=== PATIENT | male | born 1980 | race Caucasian/White ===

== ENCOUNTER 2019-05-01 11:45 | Emergency (ER) | payer BC ==
[~2019-05-01] VITALS: Ht 190.5 cm; Wt 117.0 kg
[~2019-05-01 11:45] MED LIST: HUMIRA40 MG/0.1 SUB-Q; INDOMETHACIN50 MG PO
== END 2019-05-01 14:34 | disposition home or self-care (01) ==
LOC: ED 11:45
DX: R10.13 Epigastric pain (principal); I10 Essential (primary) hypertension
CPT/HCPCS: 76705; 80053; 83690; 85025; 96360; 96361; 99284-25; J7030

== ENCOUNTER 2019-05-01 13:00 | Inpatient (IN) | payer BC ==
[~2019-05-01] VITALS: Ht 190.5 cm; Wt 117.0 kg
--- NOTE | ~2019-05-01 | DS ---
[facility] [address] [facility] [place], [place] [address] Draft ADMISSION DATE: 05/01/2019 DISCHARGE DATE: 05/08/2019 REASON FOR ADMISSION: This 39-year-old white man is accompanied by his , who is an employee of [employer] (lactational specialist). 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 Days leading up to admission had increasing episodes of rather severe epigastric and right subcostal pain. The episodes have lasted several hours, then resolved. Most recently, he had unrelenting pain in the morning of admission and presented to emergency room where he was evaluated by Dr. Michel, emergency room physician. He recognized to have pain at approximately 4 a.m. He was seen about noon. He has noted at the time of his presentation to have a little nausea and only episodic pain, he did have vomiting. Ultrasound confirmed at least one gallstone 2.8 cm in size as well as fatty infiltration of liver. Normal white count was noted. Alkaline phosphatase normal at 63, AST elevated at 140, bilirubin 1.3, lipase 33. The patient was discharged from the emergency room, but called my office given his symptoms, which sounded as though he had active acute cholecystitis with gallstones and therefore was directly admitted for further evaluation and care. Of special note, the patient does have underlying Crohn disease, terminal ileitis for which he has been on Humira since 2011. PHYSICAL EXAMINATION: GENERAL: At the time of admission showed an obese white man, who looked to be slightly uncomfortable. VITAL SIGNS: Temperature 97.8, pulse 76, blood pressure 144/86. NECK: Normal. CHEST: Clear. HEART: Regular without murmur. ABDOMEN: Obese, but soft. There is tenderness in the right subcostal area and epigastrium, but no peritonitis proper. He had no ascites. LABORATORY STUDIES: Showed a white count of 7.3, hematocrit 45.0, bilirubin 1.3, AST 140, ALT 136, alkaline phosphatase normal at 63, amylase and lipase were normal at 90 and 33. Ultrasound was reviewed confirming what appeared to be a single large gallstone. HOSPITAL COURSE: The patient was directly admitted to the hospital and given intravenous antibiotics. In light of his relative immunosuppression related to Humira use for inflammatory bowel disease, he was considered increased risk of problems and hospitalization was deemed PATIENT NAME: MERISSA ALICEA DISCHARGE SUMMARY DATE OF : [birth year] REPORT #: [id number] PHYSICIAN: HALIE CLINTON MD PCP: KATHRYN LOVE PAC REPORT IS CONFIDENTIAL AND NOT TO BE RELEASED WITHOUT AUTHORIZATION [facility] [address], [place] [address] Draft quite appropriate. It was notable that a CT scan performed on June 02, 2011 had confirmed a gallstone at that time. Upon close questioning, the patient has had episodes of epigastric and right subcostal pain occasionally, attributed to his Crohn disease I believe. He was recommended to consider undergoing laparoscopic cholecystectomy for acute calculous cholecystitis. On May 02, 2018, he underwent laparoscopic cholecystectomy with cholangiogram as well as extensive lysis of adhesions. He was found on intraoperative cholangiogram to have a common bile duct stone. On that basis, a laparoscopic common duct exploration was undertaken. This included an over the wire dilation of the ampulla with an ERCP, biliary catheter, flexible choledochoscopy with stone basket extraction and removal of common duct stone. A completion cholangiogram showed no evidence of retained stone or bile leak. A drain was placed in the subhepatic space. He had a fair amount of postoperative pain and considerable amount of anxiety. Ativan and wide variety of pain medications were employed to optimize his comfort. The following day, the drain was placed, showed a bile leak. The amount of biliary leakage was not much, but it was on the staple. The patient had variable amounts of abdominal pain from time to time, sometimes obscured by his underlying anxiety problems. Liver enzymes postoperatively appeared to be good. No evidence of elevated amylase. Phosphate and potassium were low, repleted with K-Phos. He had persistent drainage from his Memo drain, which was not expected. It was recognized that he had very severely inflamed gallbladder far more than clinically would have been expected and 2 Endoloops had been placed on the cystic duct as it was rather large in relation to typical cystic duct site. It was deemed likely that he would have resolution of the bile leak by that point or at least marked diminishment of the output. On that basis, he underwent an MRCP to assess if there was residual stone. There was no evidence of residual stone in the common bile duct or hepatic duct, but there was a leakage in the region of mid common bile duct. Consideration for options of management was undertaken including continued observation, ERCP with stent or laparoscopic and/or open evaluation of bile duct leak. Suspicion was held high that this may represent a cystic duct leak given the extent of inflammation, need for 2 Endoloop closures, and so on. Mindful of this, he elected to return to the operating room on May 05, 2019, underwent laparoscopy for evaluation. He was found to have no evidence of generalized bilious fluid within the abdomen and the drain was well positioned in the subhepatic space, which was draining bile in good amounts. He PATIENT NAME: MERISSA ALICEA BRITANY DISCHARGE SUMMARY DATE OF : [birth year] REPORT #: [id number] PHYSICIAN: HALIE CLINTON MD PCP: KATHRYN LOVE PAC REPORT IS CONFIDENTIAL AND NOT TO BE RELEASED WITHOUT AUTHORIZATION [facility] [address], [place] [address] Draft was found in the subhepatic space to have a defect in the area, which was corresponding to the cystic duct. It was a linear defect and rather persistent and healthy-appearing bile, but clearly the source of a bile leak. Dissection was undertaken to better define this area and it was thought likely related to cystic duct necrosis as was suspected. There was 1 free-floating Endoloop suture and another that was at this point ineffectively secure. Further dissection was undertaken, but certainty as to the location of common bile duct and location of the cystic duct could not be certain. On that basis, conversion to open operation with a subcostal incision was undertaken. Meticulous dissection was undertaken ultimately identifying the common bile duct. A cystic duct remnant was more fully dissected free and ultimately triply clipped. A small 2 mm leak was noted in the anterior aspect of the common bile duct, not far from the cystic duct itself and it was uncertain if this was a result of operative dissection or perhaps biliary tree manipulation during the course of previous operation. That defect was repaired with interrupted 4-0 PDS suture and a choledochotomy made in the common bile duct proper. Ductal exploration was undertaken with instrumentation showing no sign of retained stone. A T-tube was placed and T-tube cholangiogram showed no evidence of retained stone, good clearance of the duct, normal biliary anatomy otherwise. As always, a backup drain (7 mm Memo) was placed near the T-tube exit from the common duct in the subhepatic space. Postoperatively, he did have subjective improvement of his symptoms of pain, though remained quite emotional requiring anxiolytics and so on. The T-tube was allowed to drain to gravity and the Memo drain to bulb suction. There was some amount of bile leak in the first 12 to 24 hours, but this appeared to essentially resolve after that. The T-tube was clamped using a Clave device within the T-tube and he was monitored overnight for symptoms. He had no symptoms of nausea, pain, or other problems. The accessory drain seemed not to drain bile or any excessive fluid at that point. As the patient is now ambulating well, tolerating regular diet, and back to oral medication entirely, he was deemed suitable for discharge as he desired. The drain will be allowed to remain in place given uncertainty as to his progress over the next few days. The T-tube is capped off with Clave device. It is anticipated to see him back in the office in 7-10 days, at which point the subhepatic drain will be removed. The T-tube will ultimately be re-evaluated with T-tube cholangiogram and T-tube extracted at week 3-4. The patient is advised that he may resume his usual regimen of Humira for his Crohn disease issue. PATIENT NAME: MERISSA ALICEA DISCHARGE SUMMARY DATE OF : [birth year] REPORT #: [id number] PHYSICIAN: HALIE CLINTON MD PCP: KATHRYN LOVE PAC REPORT IS CONFIDENTIAL AND NOT TO BE RELEASED WITHOUT AUTHORIZATION [facility] [address], [place] [address] Draft MEDICATIONS: Will include: 1. Dilaudid 4 mg 1-2 p.o. q.4 hours p.r.n. pain, #20. 2. Tylenol 1000 mg p.o. q.6 hours, #60, refill 1. 3. Motrin 600 mg p.o. q.i.d. additionally, the patient will take Flagyl 250 p.o. t.i.d. for the next 48 hours. This is primarily on the basis of his prior history of C difficile colitis and his recent rather prolonged antibiotic usage. 4. Pepcid 20 mg p.o. b.i.d., #60. DISCHARGE DIAGNOSES: 1. Acute and chronic calculous cholecystitis with multiple gallstones, small and large, status post laparoscopic cholecystectomy with cholangiogram and laparoscopic common duct exploration including flexible choledochoscopy and extraction of stone from mid common bile duct. 2. Postoperative bile leak requiring reexploration including laparoscopic evaluation and conversion to open operation with findings of cystic duct necrosis and slippage of ligatures and small defect of common bile duct, status post exploration of common duct, repair of cystic duct, T-tube placement, and on-table cholangiogram. 3. Anxiety disorder, not otherwise specified. 4. Obesity. 5. Crohn disease with terminal ileum. MD JOHN Bolden/TOÑO /[id number] cc: Dr. Anand Renee NP Copies: ALEE RENEE NP ~ PATIENT NAME: MERISSA ALICEA DISCHARGE SUMMARY DATE OF : [birth year] REPORT #: [id number] PHYSICIAN: HALIE CLINTON MD PCP: KATHRYN LOVE PAC REPORT IS CONFIDENTIAL AND NOT TO BE RELEASED WITHOUT AUTHORIZATION
--- NOTE | 2019-05-01 16:33 | NUR ---
PT ARRIVED TO ROOM 115. PT ALERT AND ORIENTED. PT ASSESSMENT COMPLETED. PT DENIES NAUSEA AND REPORTS MILD AND TOLERABLE ABDOMINAL DISCOMFORT THAT DOES NOT WORSEN WITH PALPITATION. CALL LIGHT IN REACH. NO NEEDS OR CONCERNS VOICED.
--- NOTE | 2019-05-01 18:11 | NUR ---
PT RESTING IN SEMIFOWLERS POSITION IN BED. PT ALERT AND ORIENTED. CALL LIGHT AND H2O IN REACH. PT REPORTS PAIN TO ABDOMEN OF 3/10 SO PRN IV TORADOL ADMINSITERED PER PT REQEUST. PT PROVIDED GALLBLADDER BOOKLET EDUCATION. NO FURTHER NEEDS OR CONCERNS VOICED.
--- NOTE | 2019-05-02 03:53 | NUR ---
new bag of iv fluids infusing at 85mls/hr, site wnl. no further needs, call light in reach. primary rn tarik notified.
--- NOTE | 2019-05-02 05:56 | NUR ---
up to br, voided dark yellow urine, back to bed, denies c/o pain, medicated with scheduled tylenol 1000mg po. Npo since midnight for am procedure, swabs and call light at bedside, scds off at this time
--- NOTE | 2019-05-02 05:57 | NUR ---
Pt has been NPO since midnight for am procedure. voiding qs dark yellow urine, was medicated x1 per c/o pain plus gets scheduled tylenol 1000mg po. no emesis. ivf infusing, no adverse reaction to iv abx. up with 1psba. call light at bedside
--- NOTE | 2019-05-02 07:15 | NUR ---
PT RESTING IN SEMIFOWLERS POSITION IN BED WITH EYES CLOSED AND RESPIRATIONS EVEN AND UNLABORED ON RA. CALL LIGHT IN REACH. REPORT RECEIVED FROM JUAN LEMUS.
--- NOTE | 2019-05-02 08:05 | NUR ---
CM initial eval. Pt lives in [place] with , Ariane who works at the hospital. 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 Plans on having a lap josef today. Will dc to home when discharged with . She will be off for a few days to assist pt.
--- NOTE | 2019-05-02 08:19 | NUR ---
MED REC COMPLETE
--- NOTE | 2019-05-02 08:49 | NUR ---
PT RESTING SUPINE IN BED. PT ALERT AND ORIENTED. PT ASSESSMENT COMPLETED. PT REPORTS 3/10 PAIN TO ABDOMEN. PT REQUESTED AND RECEIVED PRN IV TORADOL. CALL LIGHT IN REACH. NO FURTHER NEEDS OR CONCERNS VOICED.
--- NOTE | 2019-05-02 11:35 | NUR ---
PT RESTING ON SIDE,PAIN AT THE MOMENT IS NOT AN ISSUE. ASHLYN AT BS. PT IS TO HAVE LAPCHOLE LATER TODAY. MENTIONED THT HE WAS STILL WONDERING IF HE SHOULD GO THROUGH WITH SURGERY SINCE THE PAIN IS NOT MUCH OF AN ISSUE. BEGAN TO DEBRIEF, HELPED HIM WHAT HE COULD EXPECT, PT DECLINED PRAYER AT THIS MOMENT. EXTENDED A BLESSING, AND I WAS LEAVING HIS MOTHER CAME. WILL FOLLOW NEEDED
--- NOTE | 2019-05-02 11:55 | NUR ---
LR WITH STRAIGHT TUBING HUNG FOR USE IN SURGERY. DECKHAND FISHING VESSEL IN TO TRANSFER PT TO OR, REPORT GIVEN. PT LEAVES FLOOR VIA HOSPITAL BED TO OR AT THIS TIME IN CARE OF [employer] VESSEL.
--- NOTE | 2019-05-02 14:06 | NUR ---
PT REMAINS IN OR AT THIS TIME.
--- NOTE | 2019-05-02 15:14 | NUR ---
PT REMAINS OFF OF MED SURG UNIT IN OR AT THIS TIME.
--- NOTE | 2019-05-02 15:16 | NUR ---
05/02/19 1516 Peyton Lal 1508 PATIENT ARRIVES TO PACU SLEEPING. AWAKENS WITH VERBAL STIMULI, THEN BACK TO SLEEP. RESP EVEN AND UNLABORED, WHEN AWAKE, FOLLOWS COMMANDS TO DEEP BREATHE AND COUGH. MASK AT 6 LITERS. 1515 PATIENT AWAKE OFF/ON. ANSWERS QUESTIONS APPROPRIATELY. RESP EVEN AND UNLABORED, MASK OFF. ROOM AIR SATS >95%. REPORTS PAIN 10/16.
--- NOTE | 2019-05-02 17:40 | NUR ---
PT ARRIVED BACK TO ROOM 115 FROM PACU IN CARE OF JUAN HER. REPORT RECEIVED. PT ALERT ADN ORIENTED, VSS. CALL LIGHT AND H2O IN REACH. PT REPORTS INCREASED ABD PAIN TO SURGICAL SITE SO PRN PO DILAUDID ADMINISTERED PER PT REQEUST. PT'S AT BEDSIDE. ICE APPLIED TO ABDOMEN.SHANNA DRAIN AND URINAL EMPTIED. PT DENIES NAUSEA OR SOB. NO FURTHER NEEDS OR CONCERNS VOICED.
--- NOTE | 2019-05-02 18:36 | OR ---
[facility] [address], [place] [address] Signed DATE OF OPERATION: 05/02/2019 SURGEON: Halie Clinton MD PREOPERATIVE DIAGNOSES: 1. Acute calculous cholecystitis. 2. Crohn disease (Humira treatment). POSTOPERATIVE DIAGNOSES: 1. Acute calculous cholecystitis and multiple gallstones. 2. Common bile duct stone. PROCEDURES: 1. Laparoscopic cholecystectomy with cholangiogram with extensive lysis of adhesions (prolonged, complicated, difficult). 2. Laparoscopic common bile duct exploration. 3. Flexible choledochoscopy with stone basket, removal of common duct stone. 4. Surgeon-directed fluoroscopy. ANESTHESIA: General endotracheal; Beryl Hawkinserson, STANDARDS ENGINEER, and local 20 mL of 0.25% Marcaine with epinephrine. INDICATION: This 39-year-old obese white man has underlying Crohn disease and he has been treated with Humira since 2011. He gets along well regarding his Crohn disease, but still has loose bowel movements most of the time. In the past few days, he has had increasing abdominal pain. He presented to the emergency room yesterday where he was evaluated by Dr. Michel, where an ultrasound of the gallbladder was performed, which showed presumably a 2.8 cm gallstone. Though the patient had nausea, vomiting, and abdominal pain, he was improved following his evaluation and was sent home. He promptly contacted my office and given his symptoms, was directly admitted to the hospital with acute cholecystitis diagnosis. He has been treated with intravenous antibiotics, parenteral pain medication and so forth and although improved, still has tenderness and complaints of epigastric and right subcostal pain. He is admitted at this time to undergo cholecystectomy preferred by laparoscopic approach. He understands the risks of bleeding, infection, bile duct injury, need for open procedure and other unforeseen complications. Understanding this, he wished to proceed. FINDINGS: Electronically Signed By: HALIE CLINTON MD 05/02/19 1836 PATIENT NAME: MERISSA ALICEA OPERATIVE REPORT DATE OF : [birth year] REPORT #: [id number] PHYSICIAN: HALIE CLINTON MD PCP: KATHRYN LOVE PAC REPORT IS CONFIDENTIAL AND NOT TO BE RELEASED WITHOUT AUTHORIZATION [facility] [address], [place] [address] Signed The gallbladder was quite markedly inflamed. There were dense omental adhesions to the undersurface. Initial cholangiogram showed contrast flow into the duodenum, but there was a common duct stone noted as well. With various maneuvers ultimately including choledochoscopy, the stone was removed. Completion cholangiogram showed free flow of contrast in biliary tree with prompt emptying into the duodenum. No evidence of filling defect or other problem. DESCRIPTION OF PROCEDURE: The patient was brought to the operating room, given a general endotracheal anesthetic. Preoperative antibiotic Ancef was given. Sequential compression device stockings used and heparin subcutaneously administered. The abdomen was clipped and prepared with chlorhexidine solution and draped sterilely. An infraumbilical incision was made and using an open Richard cannula technique, pneumoperitoneum was achieved to a level of 14 mmHg of carbon dioxide gas. Intraabdominal inspection showed no sign of ascites or carcinomatosis. The gallbladder was obscured from view initially. Three additional trocars were placed in usual configuration in the subxiphoid, right midclavicular, and right anterior axillary line. This allowed for visualization of the gallbladder. It was tense and distended and chronically and subacutely inflamed as well. The gallbladder was elevated cephalad and there was not much mobility due to scarring and omental adhesions in the inferior aspect. These were taken down with a considerable amount of time and effort with blunt and electrocautery dissection. Ultimately, the infundibulum could be better visualized and the gallbladder better elevated. The infundibulum was grasped and using blunt electrocautery dissection, the triangle of Calot was dissected free. The cystic duct and the infundibulum like area of the gallbladder were freed and ultimately completely assured as to the anatomic features locally. A clip was applied across the gallbladder cystic duct junction and transverse choledochotomy made in the cystic duct. Using the Ferguson type cholangiocatheter, cholangiography was undertaken showing free flow of contrast in biliary tree with prompt emptying into the duodenum. There appeared to be a filling defect in the distal common duct, even though contrast moved around it. On that basis, a common duct exploration was deemed advisable. A 5 mm trocar was placed in the epigastric area in alignment with the cystic duct. A flexible urologic wire was passed down the cystic duct without problem and visualized on fluoroscopy to have being passed through the ampulla. A Hurricane balloon dilator catheter was then passed over the wire and the balloon positioned over the ampulla. The balloon was inflated with radiopaque contrast in the balloon allowing for some dilation. Catheter and balloon assembly were deflated and withdrawn. A flexible ureteroscope was then passed down the trocar and into the cystic duct remnant and manipulated into the common bile duct. The choledochoscope could not pass as far as I would have expected due to angulation deformity. Irrigation was Electronically Signed By: HALIE CLINTON MD 05/02/19 1836 PATIENT NAME: MERISSA ALICEA OPERATIVE REPORT DATE OF : [birth year] REPORT #: [id number] PHYSICIAN: HALIE CLINTON MD PCP: KATHRYN LOVE PAC REPORT IS CONFIDENTIAL AND NOT TO BE RELEASED WITHOUT AUTHORIZATION [facility] [address], [place] [address] Signed undertaken and withdrawal of the scope showed 2 small stones to have been flushed in a retrograde fashion apparently. Cholangiogram was once again performed at this time showing a mid common duct defect. A ureteral stone basket was then passed under direct visualization down the cystic duct, but could not be visualized by x-ray unfortunately. The choledochoscope was then once again retrieved and passed down the cystic duct and a stone basket passed through the operating channel of the scope and beyond where the limit of the scope could go. Unfortunately, stone could not be visualized particularly and therefore, it was opened and carefully withdrawn and somewhat miraculously did encounter the stone, which was able to be withdrawn. A completion cholangiogram was then undertaken with an Ferguson type cholangiocatheter system showing free flow of contrast in biliary tree with prompt emptying into the duodenum. No sign of filling defect or other problems. The gallbladder cystic duct junction was additionally clipped and the wide duct/infundibulum remnant subsequently secured with two separate interrupted PDS Endoloop ties. Irrigation was undertaken. There was no evidence of bile leak or other problems. The gallbladder was then dissected free in a retrograde fashion using electrocautery. The gallbladder was then extracted and opened on the back table and found to have a multitude of stones, both large and small, not a single stone as was initially thought. A 7 mm flat Memo drain was placed in the subhepatic space after irrigation was undertaken. It was later secured with nylon suture. There being no sign of bleeding, bile leak, or other problems, the trocars were removed under direct visualization showing no bleeding. The infraumbilical fascial incision was reapproximated with interrupted 0 Vicryl suture. All wounds were infiltrated with 0.25% Marcaine with epinephrine. The skin was then closed with interrupted 3-0 Vicryl. Steri-Strips were applied. The patient was ultimately extubated and transferred to recovery room in good condition having suffered no complication. Procedure was complicated and difficult based on the common duct stones and various maneuvers required for that. MD JOHN Bolden/ANTONETTEL /[id number] Electronically Signed By: HALIE CLINTON MD 05/02/19 1836 PATIENT NAME: MERISSA ALICEA OPERATIVE REPORT DATE OF : [birth year] REPORT #: [id number] PHYSICIAN: HALIE CLINTON MD PCP: KATHRYN LOVE PAC REPORT IS CONFIDENTIAL AND NOT TO BE RELEASED WITHOUT AUTHORIZATION [facility] [address], [place] [address] Signed cc: Dr. Michel [facility] ARSALAN Boles Copies: ~ Electronically Signed By: HALIE CLINTON MD 05/02/19 1836 PATIENT NAME: MERISSA ALICEA OPERATIVE REPORT DATE OF : 82 REPORT #: [id number] PHYSICIAN: HALIE CLINTON MD PCP: KATHRYN LOVE PAC REPORT IS CONFIDENTIAL AND NOT TO BE RELEASED WITHOUT AUTHORIZATION
--- NOTE | 2019-05-02 18:36 | HP ---
[facility] [address] [place], [place] [address] Signed ADMISSION DATE: 05/01/2019 REASON FOR ADMISSION: Acute calculous cholecystitis, underlying immunosuppression related to Humira for Crohn disease. HISTORY: This 39-year-old white man is accompanied by his , who is an employee of [employer]. 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 In the past several days, he has had increasing episodes of rather severe epigastric and right subcostal pain. These episodes have lasted several hours and then would resolve. Most recently, he had unrelenting pain this morning and presented to the emergency room where he was evaluated by Dr. Michel, emergency room physician. He was recognized to have had pain starting at approximately 4 a.m. The patient was seen about noon. He was noted by the time of his presentation to have little nausea and only episodic pain. He did have vomiting, however. His evaluation included a gallbladder ultrasound confirming at least one gallstone 2.8 cm in size as well as fatty infiltration of the liver. He did have a normal white count of 7.3, alkaline phosphatase normal at 63, AST 140, and bilirubin 1.3. Lipase was 33. The patient recognized fully that this pain was unlike his Crohn pain in the past, which is predominantly in the lower abdomen on the right side. He has been taking Humira for about 8 years for Crohn disease. He is managed by nurse practitioner Thelma in [place]. 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 At present, he does not feel well. He has a smoldering epigastric pain. He has not had nausea or vomiting in the past few hours, however. He has had no fever or chills. As regards to his Crohn disease activity, he does have loose bowel movements about three a day, sometimes more. To my knowledge, he has not been considered for additional therapy or change of therapy. REVIEW OF SYSTEMS: Electronically Signed By: HALIE CLINTON MD 05/02/19 1836 PATIENT NAME: MERISSA ALICEA HISTORY AND PHYSICAL DATE OF : 82 REPORT #: [id number] PHYSICIAN: HALIE CLINTON MD PCP: KATHRYN LOVE PAC REPORT IS CONFIDENTIAL AND NOT TO BE RELEASED WITHOUT AUTHORIZATION [facility] [address] [place], [place] [address] Signed He denies any shortness of breath or chest pain. He does not feel particularly thirsty at this time. He has had no hematemesis or blood per rectum, but does have diarrhea as described. PHYSICAL EXAMINATION: GENERAL: Somewhat obese white man, who looks to be slightly uncomfortable. VITAL SIGNS: Temperature is 97.8, pulse is 76, and blood pressure 144/86. NECK: Shows no thyromegaly or cervical adenopathy. Trachea is midline. He has no hoarseness. CHEST: Clear. HEART: Regular without murmur. ABDOMEN: Somewhat obese but soft. He has mild tenderness in the right subcostal and epigastric area, certainly no peritonitis proper. He has no ascites. EXTREMITIES: Show no clubbing, cyanosis, or edema. LABORATORY STUDIES: Show white count of 7.3, hematocrit of 45.0, and platelets 418,000. Chem profile is normal. Glucose 102, bilirubin 1.3, AST 140, ALT 136, and alkaline phosphatase normal at 63. Globulin slightly elevated at 3.7. Amylase and lipase normal at 90 and 33 respectively. Ultrasound was reviewed confirming what appears to be a single large gallstone. ASSESSMENT: The patient has relative immunosuppression in using Humira for inflammatory bowel disease control. His control of disease is reasonable, though not complete. He has had episodes of epigastric and right subcostal pain over time, now worsening recently. It is notable that a CT scan performed on June 02, 2011, confirmed gallstone at that time as well. The terminal ileum was noted to be thick walled and somewhat patulous. I discussed with the patient and his in great detail, the pathophysiology of biliary disease as relates to gallstones. He will be considered to have relative immunosuppression on the basis of his biologic agent Humira for control of his Crohn disease. He is at increased risk (not decreased risk) of problems related to gallstone under these circumstances. He has had accelerating symptoms over the past several weeks and now will be considered to have acute cholecystitis in fact. A white count is not necessary for such a diagnosis, only tenderness and presence of the gallstone. I would recommend cholecystectomy preferred by laparoscopic approach. The risks of bleeding, infection, need for common duct exploration, need for open procedure and other unforeseen complications, particularly in the face of underlying immunosuppression Electronically Signed By: HALIE CLINTON MD 05/02/19 1836 PATIENT NAME: MERISSA ALICEA HISTORY AND PHYSICAL DATE OF : 82 REPORT #: [id number] PHYSICIAN: HALIE CLINTON MD PCP: ADDLEMAN,KATHRYN K PAC REPORT IS CONFIDENTIAL AND NOT TO BE RELEASED WITHOUT AUTHORIZATION [facility] [address] [place] [address] Signed related to Humira use was reviewed in detail. He is on a scheduled dose for Humira every two weeks and his last injection was a week ago. For now, we will administer IV antibiotics, pain control as needed, and DVT prophylaxis. Anticipating cholecystectomy preferred by laparoscopic approach tomorrow. MD JOHN Bolden/TOÑO /[id number] cc: Thelma, Nurse Practitioner Gopi Michel [facility] Copies: ~ Electronically Signed By: HALIE CLINTON MD 05/02/19 1836 PATIENT NAME: MERISSA ALICEA HISTORY AND PHYSICAL DATE OF : 82 REPORT #: [id number] PHYSICIAN: HALIE CLINTON MD PCP: KATHRYN LOVE PAC REPORT IS CONFIDENTIAL AND NOT TO BE RELEASED WITHOUT AUTHORIZATION
--- NOTE | 2019-05-02 18:57 | NUR ---
PT ALERT AND ORIENTED RESTING IN SEMIFOWLERS POSTIION IN BED WITH CPOX ON AND ON 2LPNC. PT DENIES SOB BUT REPORTS PAIN OF 7/10 TO SURGICAL SITE. PRN IV MORPHINE ADMINSITERED PER PT REQUEST. CALL LIGHT AND H2O IN REACH. NO OTHER NEEDS OR CONCERNS VOICED.
--- NOTE | 2019-05-02 19:15 | NUR ---
PT AWAKE IN ROOM, SPOUSE AT BEDISDE. INCISION SITES WNL. SHANNA DRAIN EMPTIED BY ROSIE MARTINEZ. ICE PACKS ON ABD. PAIN 07/17. NC@ 2L, CPOX 96%. IV FLUID INFUSING PER ORDER. SHIFT REPORT RECIEVED FROM ROSIE MARTINEZ. NO OTHER NEEDS, CALL LIGHT IN REACH.
--- NOTE | 2019-05-02 19:49 | NUR ---
VS TAKEN. PAIN 5/10. NO OTHER NEEDS, CALL LIGHT IN REACH.
--- NOTE | 2019-05-02 20:20 | NUR ---
PT UP TO WALK THE HALLS, TOLERATED WELL. CPOX 96% RA. PT BACK IN BED, NO OTHER NEEDS. CALL LIGHT IN REACH.
--- NOTE | 2019-05-02 21:28 | NUR ---
ASSESSMENT COMPLETED. SHANNA DRAINED. INCISIONS WNL. IV WNL, CDI, FLUSHED WELL. SCHEDULED MEDS PROVIDED. PRN PAIN MED PROVIDED FOR 5/10 ABD PAIN. PUDDING AND CRACKERS PROVIDED. NO OTHER NEEDS, CALL LIGHT IN REACH.
--- NOTE | 2019-05-02 23:30 | NUR ---
PT RESTING IN BED, EYES CLOSED. RR 16, EVEN, UNLABORED. CALL LIGHT IN REACH.
--- NOTE | 2019-05-03 00:34 | NUR ---
PT WAKES WHEN RN OPENS DOOR. NO NEEDS AT THIS TIME. CALL LIGHT IN REACH.
--- NOTE | 2019-05-03 01:28 | NUR ---
IN ROOM TO ANSWER CALL LIGHT. PT STANDING IN BATHROOM REPORTING 7-8/10 PAIN, PRN MORPHINE AND TORADOL ADMINISTERED. PT'S PROVIDING THERAPEUTIC COMMUNICATION TO PT. VSS, SHANNA EMPTIED. I&O'S RECORDED. ICE PACKS X2 PROVIDED. NO ADDITIONAL NEEDS, CALL LIGHT IN REACH.
--- NOTE | 2019-05-03 02:07 | NUR ---
PT STATES PAIN IS STILL 5/10 IN ABD. PRN PAIN MEDICATION PROVIDED. ASSESSMENT COMPLETED. INCISIONS WNL. IV CDI, WNL. ICE PACKS AND CLEAR SODA PROVIDED. NO OTHER NEEDS. CALL LIGHT IN REACH.
--- NOTE | 2019-05-03 04:21 | NUR ---
SPOUSE COMES TO DESK TO STATE CONCERN ABOUT PT PAIN. PAIN 7/10 IN ABD. PT VERY ANXIOUS. PRN PAIN AND ANXIETY MEDS PROVIDED. IV FLUIDS INFUSING PER ORDER. NO OTHER NEEDS AT THAT TIME. CALL LIGHT IN REACH.
--- NOTE | 2019-05-03 05:43 | NUR ---
PT HAS NOT SLEPT WELL THIS SHIFT. PAIN MODERATELY MANAGED WITH PRN AND SCHEDULED PAIN MEDS. ANXIETY MED PROVIDED X1 PT WAS VERY WORRIED ABOUT THE ABD PAIN NOT SUBSIDING COMPLETELY. PT TOLERATED SCDs AND IV FLUIDS WELL. INCISIONS WNL, SHANNA WNL WITH SANGUINOUS OUTPUT. A&O X4. PT WALKED HALLS X1, SBA TO BR. SPOUSE IN ROOM. IV WNL, TOLERATED WELL.
--- NOTE | 2019-05-03 06:20 | NUR ---
SCHEDULED MEDS PROVIDED. PT STATES PAIN IS 05/19. NC @2L, CPOX 94. PT RESTING WELL AT THIS TIME. NO OTHER NEEDS, CALL LIGHT IN REACH.
--- NOTE | 2019-05-03 07:17 | NUR ---
PT RESTING SUPINE IN BED. EYES CLSOED AND RESPIRATIONS EVEN AND UNLABORED. O2 SATTING IN LOW 90'S ON 2LPNC RR12. PT APPEARS TO BE SLEEPING COMFORTABLY. PT'S AT BEDSIDE. REPORT RECEIVED FROM JUAN BURRELL.
--- NOTE | 2019-05-03 08:39 | NUR ---
PT WAS UP AMBULATING HALLS WITH STEADY GAIT. PT BACK TO ROOM AND RESTING IN SEMIFOWLERS POSITION IN BED. ASSESSMENT COMPLETED. BT'S ACTIVE. PT STATES HE IS PASSING [place] THIS MORNING AND DENIES NAUSEA. PT REPORTS PAIN OF 3/10 SO PRN IV TORADOL AND PO DILAUDID ADMINISTERED PER PT REQUEST. CALL LIGHT AND H2O IN REACH. CPOX IN PLACE AND PT SATTING IN HIGH TO MID 90'S ON RA. NO NEEDS OR CONCERNS VOICED.
--- NOTE | 2019-05-03 09:47 | NUR ---
IN TO SEE PATIENT. PT IS ALERT AND ORIENTED X4. PT STATES HE WAS ABLE TO HAVE A COUPLE BITES OF BAGEL BUT FEELS GASSY AND SOME PRESSURE SO IS TAKING IT SLOW. CALL LIGHT AND H2O IN REACH. PT DENIES NAUSEA OR PAIN. NO OTHER NEEDS OR CONCERNS VOICED. PT'S REMAINS AT BEDSIDE.
--- NOTE | 2019-05-03 10:44 | NUR ---
PT RESTING IN SEMIFOWLERS POSITION IN BED PT ALERT AND ORIENTED. O2 SAT IN HIGH 90'S ON RA PER CPOX. PT REPORTS INCREASED ACHING ABDOMINAL PAIN AFTER HE DEVOLOPED THE HICCUPS WITH HIS BREAKFAST. PRN PO ANALGESIC ADMINISTERED PER PT REQUEST. FAMILY AT BEDSIDE VISITING WITH PATIENT.
--- NOTE | 2019-05-03 12:44 | NUR ---
PT RESTING SUPINE IN BED, EYES CLOSED AND RESPIRATIONS EVEN AND UNLABORED. PT APPEARS TO BE SLEEPING COMFORTABLY. CALL LIGHT AND H2O IN REACH.
--- NOTE | 2019-05-03 14:40 | NUR ---
PT RESTING IN SEMIFOWLERS POSITION IN BED. PT ALERT AND ORIENTED. CALL LIGHT AND H2O IN REACH. PT REPORTS 6/10 ACHING ABDOMINAL PAIN. PRN PO ANALGESICS ADMINSITERED -SEE EMAR. PT DENIES NAUSEA OR SOB. CPOX IN PLACE AND PT SATTING IN MID 90'S ON RA. PT ASSESSMENT COMPLETED AND SHANNA DRAIN EMPTIED. NO OTHER NEEDS OR CONCERNS VOICED.
--- NOTE | 2019-05-03 15:36 | NUR ---
PT RESTING SUPINE IN BED ALERT AND ORIENTED. PT STATES "I KEEP GETTING ANXIOUS AND THEN I TENSE MY MUSCLES UP AND THEN THE PAIN SHOOTS UP AND THEN I GET MORE ANXIOUS AND I JUST WANT TO TRY TO GET SOME REST". PT ENCOURAGED TO DEEP BREATH. SCHEDULED ATIVAN ADMINISTERED. CALL LIGHT AND H2O IN REACH. NO FURTHER NEEDS OR CONCERNS VOICED.
--- NOTE | 2019-05-03 16:32 | NUR ---
IN TO SEE PATIENT. PT RESTING SUPINE IN BED, ALERT AND ORIENTED. CALL LIGHT AND H2O IN REACH. NO NEEDS OR CONCERNS VOICED. O2 SAT 96% ON RA. [facility].
--- NOTE | 2019-05-03 17:20 | NUR ---
PT REPORTS INCREASING PAIN TO ABDOMEN DUE TO HICCUPS PT REQEUSTED AND RECEIVED PRN ZOFRAN AND PRN TORADOL -SEE EMAR. CALL LIGHT AND H2O IN REACH. NO OTHER NEEDS OR CONCERNS VOICED.
--- NOTE | 2019-05-03 19:20 | NUR ---
PT RESTING IN BED, IN [place], PAIN 06/16, PT DENIES NEED FOR INTERVENTION AT THIS TIME. ICE PACKS AND CLEAR SODA PROVIDED. PAIN MANAGEMENT PLAN DISCUSSED. INCISIONS AND IV WNL. CPOX ON @ 95%, RA. SHANNA WNL. NO OTHER NEEDS, CALL LIGHT IN REACH.
--- NOTE | 2019-05-03 21:03 | NUR ---
SCHEDULED MEDS PROVIDED BY ELAINA MARTINEZ.
--- NOTE | 2019-05-03 22:03 | NUR ---
ASSESSMENT, VS AND I&O COMPLETED. PAIN 04/18. INCISIONS WNL. IV CDI, WNL, FLUSHED WELL. NEW BAG IV FLUIDS PROVIDED. SCHEDULED MEDS PROVIDED. NO OTHER NEEDS, CALL LIGHT IN REACH.
--- NOTE | 2019-05-04 00:55 | NUR ---
PT PAIN 6/10, PRN PAIN MED PROVIDED. ICE PACKS PROVIDED. URINAL AND SHANNA EMPTIED. NO OTHER NEEDS, CALL LIGHT IN REACH.
--- NOTE | 2019-05-04 02:13 | NUR ---
SCHEDULED MED PROVIDED. PAIN 08/16, PT DENIES NEED FOR PAIN INTERVENTION AT THIS TIME. ASSESSMENT COMPLTEED. NO OTHER NEEDS AT THIS TIME. CALL LIGHT IN REACH.
--- NOTE | 2019-05-04 05:56 | NUR ---
SCHEDULED MEDS PROVIDED. PRN PAIN MED PROVIDED FOR ABD PAIN 07/17. VS AND I&O COMPLETED BY JULY FLOWER BUNCHER OR PICKER. NO OTHER NEEDS. CALL LIGHT IN REACH.
--- NOTE | 2019-05-04 06:45 | NUR ---
CALLED TO PT ROOM BY . PT STANDING AT EDGE OF BED, GRIMACING AND HOLDING ABD. STATES HE WAS IN THE BATHROOM HAVING A BOWEL MOVEMENT WHEN HE FELT LIGHTHEADED AND HAD SHARP PAINS IN LRQ. PT STATES THE PAIN WHEN UP THROUGH HIS CHEST AND UP THE BACK OF THE NECK A DULL ACHE. VSS. INCISIONS AND SHANNA WNL. IV WNL. ZOFRAN PROVIDED IT"HELPED LAST TIME" . PT STATES PAIN IS DIFFERENT THAN OTHER PAINS. PT IS NO LONGER SOB, SHARP PAIN IN RLQ AND PRESSURE ACROSS ENTIRE ABD. WILL HAVE OFFSET PRINTING PRESSMEN GET CBG AND REPORT FINDINGS.
--- NOTE | 2019-05-04 07:25 | NUR ---
PT UP TO RESTROOM AT THIS TIME. PT DENIES NEEDS OR CONCERNS AND AGREES TO USE CALL LIGHT WHEN FINISHED. REPORT RECEIVED FROM JUAN BURRELL.
--- NOTE | 2019-05-04 08:08 | NUR ---
IN TO ANSWER CALL LIGHT. PT RELAYS CONCERN THAT EARLIER THIS MORNING AT ABOUT 0530 HE GOT DIZZY WITH BLURRED VISION AND SOME SOB AFTER STRAINING TO HAVE BM. PT ALSO REPORTS CONCERN THAT HE HAD SOME ABDOMINAL PAIN THAT RADIATED TO HIS UPPER BACK AND THAT HIS RIGHT ARM GOT NUMB WITH TINGLING THAT CAME AND WENT QUIKLY. PT REPORTS ACHING PAIN TO ABDOMEN. 35MLS OF SLIGHTLY CLEAR REDDISH YELLOW BILE LOOKING FLUID EMPTIED FROM SHANNA DRAIN. PT ASSESSMENT COMPLETED. PT DOES APPEAR ANXIOUS, IS FIDGETING HIS HANDS AND HAS FACIAL GRIMMACE. VSS. PRN... IV MORPHINE AND SCHEDULED ATIVAN ADMINISTERED ALONG WITH MORNING MEDS. WILL NOTIFY DR CLINTON OF PT'S CONCERNS AND OF ASSESSMENT FINDINGS. NO FURTHER NEEDS OR CONCERNS VOICED. H2O AND CALL LIGHT IN REACH.
--- NOTE | 2019-05-04 08:20 | NUR ---
PATIENT SLEEPY IN BED. RN AND IN ROOM. ICE WATER GIVE. ICE PACKS PROVIDED. CALL LIGHT WITHIN REACH. NO OTHER NEEDS AT THIS TIME
--- NOTE | 2019-05-04 08:20 | NUR ---
DR CLINTON WAS NOTIFIED OF PT'S REPORTED SYMPTOMS AND OF ASSESSMENT FINDINGS. NO NEW ORDERS RECEIVED. PT AND WERE UPDATED OF THIS AND PT APPEARS TO BE RELAXED AND DENIES FURTHER NEEDS OR CONCERNS. PT DESATTING TO 88% ON RA SO WAS PLACED ON 2LPNC AND NOW SATTING IN MID 90'S. CALL LIGHT AND H2O IN REACH. PT'S IS AT BEDSIDE.
--- NOTE | 2019-05-04 09:46 | NUR ---
PATIENT RESTING IN BED. IN ROOM. VITAL SIGNS AND I&O DONE. CALL LIGHT WITHIN REACH. NO OTHER NEEDS AT THIS TIME
--- NOTE | 2019-05-04 09:58 | NUR ---
PT RESTING SUPINE IN BED ALERT AND ORIENTED. PT STATES PAIN IS BETTER BUT STILL 5/10 ACHING/TENDERNESS TO ABDOMEN. PRN ANALGESICS ADMINSITERED PER PT REQUEST. CALL LIGHT AND H2O IN REACH. PT DENIES NAUSEA, SOB OR OTHER SYMPTOMS AT THIS TIME. NO OTHER NEEDS OR CONCERNS VOICED.
--- NOTE | 2019-05-04 10:12 | NUR ---
PATIENT AMBULATING IN THE HALLWAY, ASSISTING HIM.
--- NOTE | 2019-05-04 10:20 | NUR ---
PATIENT USING THE BATHROOM. IN ROOM. LINENS CHANGED. CALL LIGHT WITHIN REACH. NO OTHER NEEDS AT THIS TIME
--- NOTE | 2019-05-04 12:13 | NUR ---
PT RESTING SUPINE IN SEMIFOWLERS POSITION IN BED. PT ALERT AND ORIENTED. 02 SAT 89% ON RA SO PT PLACED BACK ON 2LPNC. CALL LIGHT AND H2O IN REACH. PT DENIES NEEDS OR CONCERNS. PT DENIES NAUSEA, SOB, PAIN OR OTHER SYMPTOMS AT THIS TIME. SHANNA DRAIN WAS EMPTIED. LUNCH TRAY ARRIVED AT THIS TIME.
--- NOTE | 2019-05-04 13:02 | NUR ---
IN TO SEE PATIENT. PT WAS UP AMBULATING HALLS AND THEN UP TO RESTROOM. PT STANDING IN ROOM, ALERT AND ORIETNED AND APPEARS TO BE IN NO ACUTE DISTRESS. DR CLINTON IN ROUNDING WITH PATIENT GOING OVER POC. ALL QUESTIONS ANSWERED. CALL LIGHT AND H2O IN REACH. LUNCH TRAY ARRIVED AND PT ASSISTED BACK TO BED. NO FURTHER NEEDS OR CONCERNS VOICED.
--- NOTE | 2019-05-04 13:09 | NUR ---
BACK IN TO SEE PATIENT PER WIFES REQUEST. PT REPORTS SOME HICCUPS AFTER DRINKING HIS MOUNTAIN DEW WHICH IS CAUSING HIM DISCOMFORT. PT REQUESTS ZOFRAN TO BE ADMINISTERED THIS HAS HELPED ALLEVIATE THIS IN THE PAST. PT WAS GIVEN COLD ICE WATER AND ENCOURAGED TO TAKE A DRINK BUT THIS WAS INNEFFECTIVE SO PRN IV ZOFRAN ADMINISTERED PER REQEUST. CALL LIGHT AND H2O IN REACH AND PT DENIES FURTHER NEEDS OR CONCERNS.
--- NOTE | 2019-05-04 13:18 | NUR ---
PATIENT RESTING IN BED. AND RN IN ROOM. VITAL SIGNS AND I&O DONE. CALL LIGHT WITHIN REACH. NO OTHER NEEDS AT THIS TIME
--- NOTE | 2019-05-04 15:57 | NUR ---
PT RESTING IN SEMIFOWLERS POSITION IN BED PT ALERT AND ORIENTED. REPORTS PAIN OF 3/10. PT REQUESTED AND RECEIVED PRN PO DILAUDID. CALL LIGHT AND H2O IN REACH. PT DENIES FURTHER NEEDS OR CONCERNS.
--- NOTE | 2019-05-04 17:40 | NUR ---
PATIENT RESTING IN BED.RN AND IN ROOM. VITAL SIGNS AND I&O DONE. CALL LIGHT WITHIN REACH. NO OTHER NEEDS AT THIS TIME
--- NOTE | 2019-05-04 18:58 | NUR ---
PT HAS APPEARED TO HAVE PAIN WELL UNDER CONTROL TODAY WITH PO ANALGESICS AND IV TORADOL. PT'S ANXIETY HAS ALSO APPEARED TO BE WELL CONTROLLED WITH SCHEDULED ATIVAN PT REPORTS THAT THIS HAS HELPED HIM SIGNIFICANTLY WITH BOTH ANXIETY AND PAIN REDUCTION. PT HAD A TOTAL OF 228MLS OUT OF HIS SHANNA DRAIN THIS SHIFT. DRAINAGE APPEARS TO CONTAIN SOME BILE (CLEAR BUT DARK REDDISH YELLOW/BROWN.). PT IS TO BE NPO AT MIDNIGHT FOR MRCP SCHEDULED FOR TOMORROW. SHANNA DRAIN TUBING WAS REENFORCED WITH TAPE TO PREVENT TUGGING FROM SITE. VS'S HAVE BEEN STABLE -PT AFEBRILE THIS SHIFT. PT DID HAVE MULTIPLE EPISODES OF HICCUPS THAT HAVE BEEN RELEIVED WITH PRN IV ZOFRAN. HICCUPS ARE VERY PAINFUL FOR PATIENT AND PT HAS HAD ALMOST IMMEDIATE RELEIF WITH ZOFRAN WHEN OTHER MEASURES SUCH COLD ICE WATER WERE INEFFECTIVE. PT'S IS VERY SUPPORTIVE OF PT'S CARES AND HAS BEEN PRESENT WITH PT FOR MUCH OF THE DAY. SOILED DSG TO SHANNA DRAIN WAS REPLACED AND IS CURRENTLY CDI, STERISTRIPS ALSO INTACT.
--- NOTE | 2019-05-04 19:40 | NUR ---
BESIDE REPORT RECEIVED FROM JUAN VELEZ. pt RESTING IN BED. RATES PAIN 4/10 IN ABD. SHANNA DRAIN WITH SMALL AMOUNT YELLOWISH RED DRAINAGE. RLQ DRESSING CDI. LAP SITES INTACT WITH STERI STRIPS, DRIED DRAINAGE.
--- NOTE | 2019-05-04 20:54 | NUR ---
VITALS AND I&OS DONE AND CHARTED. BEDSIDE TABLE AND CALL LIGHT IN REACH. ICE PACKS FILLED. PT NEEDS NOTHING MORE AT THIS TIME.
--- NOTE | 2019-05-04 21:09 | NUR ---
pt ASSESSMENT COMPLETE. BOWEL TONES ACTIVE X 4. ABD SOFT, DISTENDED. NON-TENDER W PALPATION. SHANNA EMPTIED, BROWNISH RED COLOR, 40 MLS. IV FLUSHED WNL, IVF INFUSING. PRN PAIN MEDICATION ADMINISTERED FOR 5/10 PAIN IN ABDOMEN. IN ROOM. CALL LIGHT IN REACH.
--- NOTE | 2019-05-04 21:21 | NUR ---
PATIENT IS RESTING IN BED. PATIENTS IS AT THE BEDSIDE. ALL QUESTIONS ANSWERED. PLACED CALL TO IMAGING ABOUT FURTHER QUESTIONS ABOUT TOMORROWS PROCEDURE. NOTIFIED PATIENT AND ABOUT ANSWERS FROM IMAGING. THO MARTINEZ IS IN THE ROOM.
--- NOTE | 2019-05-04 21:40 | NUR ---
pt UP AMBULATING IN HALLWAY WITH .
--- NOTE | 2019-05-04 22:15 | NUR ---
DR. CLINTON TO FLOOR. VERBAL ORDER, OKAY TO ADMINISTER PO PAIN MEDICATIONS UP TO [facility].
--- NOTE | 2019-05-05 01:56 | NUR ---
SBA TO RESTROOM FOR VOID AND BACK TO BED. SHANNA DRAIN EMPTIED 18 MLS BROWN/YELLOW DRAINAGE. ABD DISTENDED, SOFT, NON-TENDER W PALPATION, BOWEL TONES ACTIVE X 4. pt RATES PAIN 0/10 AT REST, "INCREASES, TIGHT WHEN I MOVE, BREATHE". CALL LIGHT IN REACH. pt NPO.
--- NOTE | 2019-05-05 04:58 | NUR ---
CALL LIGHT ANSWERED. pt C/O 11/16 ABD PAIN. SHANNA DRAIN EMPTIED 35 MLS BROWN, TINTED DRAINAGE, APPEARS DARKER THAN START OF SHIFT. pt UP TO RESTROOM WITH SBA, LOOSE BM, VOID IN URINAL. PRN MORPHINE IV ADMINISTERED. ICE PACKS PROVIDED FOR ABD. CALL LIGHT IN REACH. AT BEDSIDE.
--- NOTE | 2019-05-05 05:55 | NUR ---
VENDING SERVICE TECHNICIAN IN pt ROOM. VSS. pt PALE, RATES PAIN 8/10 IN RLQ. PRN PAIN MEDICATION ADMINISTERED. IV ZOFRAN ADMINISTERED FOR NAUSEA. EMESIS BAG IN REACH. NPO. ICE PACKS IN PLACE ON ABD. CALL LIGHT IN REACH.
--- NOTE | 2019-05-05 06:03 | NUR ---
pt UP AMBULATING HALLWAY SBA MULTIPLE TIMES THIS SHIFT. SHANNA DRAIN WITH 138 MLS BROWNISH/YELLOW DRAINAGE. VOIDING QS. VSS. PRN PAIN MEDICATION ADMINISTERED THROUGHOUT SHIFT. NPO AT MIDNIGHT FOR MRCP. PRN ZOFRAN X 1 FOR NAUSEA. pt ANXIOUS, IN ROOM, RN PLACED ON 2L OXYGEN BY NC AFTER IV MORPHINE ADMINISTRATION. SPO2 WNL ON RA WHILE AWAKE.
--- NOTE | 2019-05-05 07:55 | NUR ---
PATIENT TRANSFERRED TO MRI. LINENS CHANGED. NO OTHER NEEDS AT THIS TIME
--- NOTE | 2019-05-05 08:08 | NUR ---
UPON ENTERING ROOM PT LYING ON BACK EYES CLOSED, FACIAL GRIMACE NOTED, PT GRASPING AT BELLY. ABD NOTABLY DISTENDED. PT BELCHING OFTEN, REPORTS NAUSEA. SCHEDULED ATIVAN ADMINISTERED AT 0744 PRIOR TO TRANSFER TO IMAGING DEPT FOR MRCP PER PT AND HIS JOSETTE. PT STOOD INDEPENDENTLY AT EDGE OF BED AND TRANSFERRED TO MRI BED. PT IN OBVIOUS DISCOMFORT WITH MOVEMENT. TRANSPORTED TO IMAGING DEPT AT THIS TIME. WITH PT.
--- NOTE | 2019-05-05 09:33 | NUR ---
PATIENT RESTING IN BED. AND RN IN ROOM. VITAL SIGNS AND I&O DONE. CALL LIGHT WITHIN REACH. NO OTHER NEEDS AT THIS TIME
--- NOTE | 2019-05-05 09:35 | NUR ---
PT RETURNED FROM IMAGING, PER PT HE WAS UP TO RESTROOM, VOIDED AND BRUSHED TEETH. CURRENTLY LYING IN BED APPEARS VERY DROWSY, FALLS ASLEEP EASILY DURING CONVERSATION. AWAKENS EASILY TO VOICE. PT O2 NOTED TO DROP BETWEEN 86-88% ON RA WHILE SLEEPING, OCCASIONAL APNEIC PERIODS OBSERVED. 2L NC APPLIED SATTING 98%. PT EXPRESSED CONCERN ABOUT PT'S NEUROLOGICAL STATUS, DROWSINESS, OCCASIONAL BLURRED VISION. REPORTS PT UNSTEADY ON FEET WHEN AMB TO RESTROOM THIS AM. PT OTHERWISE ORIENTEDX4. THIS RN PERFORMED HEAD TO TOE ASSESSMENT, VS OBTAINED (SEE DOCUMENTATION). ABD MODERATELY DISTENDED WITH REPORTING INCREASE IN DISTENTION. ACTIVE BT THROUGHOUT, LUNGS CLEAR, HR REGULAR, WITHOUT MURMUR OR NOTABLE ARRYTHMIA. 3 LAP SITES TO ABD DRESSED WITH STERI STRIPS, SMALL AMOUNT OF OLD DARK DRIED BLOOD. SHANNA DRAIN IN PLACE TO RIGHT LOWER QUADRANT PUTTING OUT COPIOUS AMOUNT OF DARK BILE COLORED DRAINAGE. NOTIFIED DR. CLINTON OF PT CONDITION AND 'S CONCERN. NO NEW ORDERS AT THIS TIME. DR. CLINTON STATES HE WILL ROUND SHORTLY ON PT. PT LEFT LYING IN BED, CALL LIGHT WITHIN REACH, AT BEDSIDE.
--- NOTE | 2019-05-05 10:20 | NUR ---
DR. CLINTON ROUNDED ON PT AND DISCUSSED CURRENT PLAN OF CARE WITH PT AND HIS . DR. CLINTON STATED HE WOULD LIKE TO MOVE FORWARD WITH TORADOL AND IV TYLENOL FOR PAIN CONTROL AND CUT BACK ON OPIOIDS. PT RATES PAIN 6/10 AT THIS TIME. MEDICATED WITH PRN IV TYLENOL AND TORADOL. DENIES NAUSEA. PT ALREADY MORE ALERT. CALL LIGHT WITHIN REACH.
--- NOTE | 2019-05-05 10:30 | NUR ---
Followed Dr Hoover into Matt's room. Pt was updated by Dr. Hoover. Please see Dr. Hoover's note. No change for CM as discharge remains pending due to MRI scheduled for today.
--- NOTE | 2019-05-05 11:00 | NUR ---
SHANNA DRAIN EMPTIED. PT AND DENY NEEDS AT THIS TIME. WOULD LIKE SOME UNINTERRUPTED TIME TO REST. COMMUNICATED WITH SUPERVISOR HAND WORKERS ABOUT CLUSTERING CARE AND PLACE DO NOT DISTURB SIGNS ON DOOR. PT AND AGREEABLE TO CALL FOR ASSISTANCE NEEDED. CALL LIGHT WITHIN REACH.
--- NOTE | 2019-05-05 12:00 | NUR ---
PT EXPRESSED TO THIS RN THAT PT IS VERY UPSET WITH COURSE OF CARE AT THIS POINT. MAKING STATEMENTS ABOUT POSSIBLY WANTING TO LEAVE AMA. THIS RN NOTIFED DR. CLINTON WHO STATED HE WOULD LIKE TO PREPARE FOR SURGERY THIS AFTERNOON AND WOULD BE IN SHORTLY TO VISIT WITH PT AND HIS CONCERNING THE RESULTS OF THE MRCP. THIS RN UPDATED PT AND AND ALLOWED PT TO EXPRESS HIS FRUSTRATION. ATTEMPTED THERAPEUTIC COMMUNICATION. PT SITTING UP IN BED, AT BEDSIDE. PT STATES HE IS UPSET THAT THEY HAVE HAD TO "SIT AROUND WAITING FOR THIS IMAGAING THAT SHOULD HAVE BEEN DONE SOONER. IF WE KNEW THIS COULD HAVE BEEN A POTENTIAL PROBLEM WHY DIDN'T WE HAVE A PLAN AHEAD OF TIME." PT AWARE OF LACK OF STAFFING FOR MRI ON WEEKENDS. PT AND INFORMED THAT FOR SAFETY IT'S PROBABLY BEST TO STAY BUT THEY HAVE THE RIGHT LEAVE IF THEY SO CHOOSE. THEY VERBALIZE UNDERSTANDING OF THEIR RIGHTS. WHEN ASKED IF HE IS HAVING PAIN PT STATES "I DON'T KNOW, DOES IT MATTER?" REFUSED PAIN OR NAUSEA MEDICATION AT THIS TIME. NPO. PT AND ENCOURAGED TO ASK QUESTIONS OR FOR ASSISTANCE NEEDED. CALL LIGHT WITHIN REACH.
--- NOTE | 2019-05-05 13:32 | NUR ---
PT TRANSPORTED VIA HOSPITAL BED WITH PRESENT.
--- NOTE | 2019-05-05 13:57 | NUR ---
PATIENT IN SURGERY. I&O DONE.
--- NOTE | 2019-05-05 14:26 | NUR ---
VISITED WITH PT IN OR, WAITING SURGERY. I COULD TELL THE STRESS HAS TAKEN A TOLL ON JOSETTE, AND FRUSTRATION ON BOTH PARTS. GAVE ENCOURAGEMENT AND BLESSING. WILL FOLLOW NEEDED
--- NOTE | 2019-05-05 18:49 | NUR ---
KYLE MARTINS TO ROOM TO UPDATE PT'S PARENTS AND THAT PT IS IN RECOVERY AND DOING WELL SO FAR.
--- NOTE | 2019-05-05 18:56 | NUR ---
05/05/191855 Shiela Moser 182 PATIENT INTO RECOVERY ROOM, DROWSY. DRESSING C/D/I TO ABDOMEN. REPORT KYLE NEWMAN. STATES " I MY PAIN IS GOOD" 183 PATIENT APPEARS MORE AWAKE, PATIENT ASKING QUESTIONS ABOUT PROCEDURE. REPORTS PAIN WELL CONTROLLED. 1844 PATIENT APPEARS TEARFUL, APPEARS ANXIOUS. OFFERED URINAL PATIENT PATIENT ASKING KYLE NEWMAN QUESTIONS. 185 PATIENT REQUESTING TO USE URINAL. ELEVATED HOB, AND ASSISTED PATIENT WITH URINAL. PAIN CONTINUES TO BE WELL CONTROLLED. DRESSING C/D/I.
--- NOTE | 2019-05-05 19:20 | NUR ---
PT ARRIVED TO UNIT VIA HOSPITAL BED. AWAKE, ALERT AND ORIENTED. PT LAUGHING AND JOKING WITH STAFF. PT AND PARENTS AT BEDSIDE. THIS RN AND THO RECIEVED BEDSIDE REPORT FROM FOSTER MARTINEZ.
--- NOTE | 2019-05-05 19:23 | NUR ---
pt BACK FROM SURGERY. DENIES PAIN. VISITING WITH FAMILY. VSS. ASSESSMENT COMPLETE. BOWEL TONES ACTIVE X 4. ABD DISTENDED. DRESSINGS CDI. SHANNA DRAIN WITH SANGUINOUS DRAINAGE. T TUBE DRAINING SMALL AMT BROWN DRAINAGE. pt VERBALIZES UNDERSTANDING TO USE CALL LIGHT. ICE WATER PROVIDED. pt DENIES ANY PAIN. SOME TENDERNESS IN RLQ. CALL LIGHT IN REACH. FAMILY IN ROOM.
--- NOTE | 2019-05-05 20:17 | NUR ---
SECOND SET POST OP VSS. pt DENIES PAIN "STARTING TO FEEL A LITTLE MORE UNDER RIB CAGE". TOLERATING SIPS OF WATER. SMALL SANGUINOUS DRAINAGE AT SHANNA INSERTION SITE, REINFORCED WITH GAUZE. SCDS ON. FAMILY IN ROOM. NEW BAG IVF INFUSING WNL.
--- NOTE | 2019-05-05 22:10 | NUR ---
POST OP VSS. SMALL AMT SHADOWING ON RUQ FOAM DRESSING. BROWN DRAINAGE IN T TUBE BAG, SHANNA DRAIN WITH SS DRAINAGE. PRN OFIRMEV ADMINISTERED 3/10 PAIN "TO LEFT OF STERNUM, PRESSURE". SOME TENDERNESS RLQ. pt NAUSEOUS, TAKING SIPS OF WATER. PRN ZOFRAN ADMINISTERED. CALL LIGHT IN REACH. IN ROOM. IVF INFUSING WNL ORDERED.
--- NOTE | 2019-05-05 23:06 | NUR ---
POST OP VSS. pt RATES PAIN 3-4/10 RUQ, LUQ ABD, PRESSURE IN UMBILICUS. PRN TORADOL ADMINISTERED FOR PAIN. IVF INFUSING WNL ORDERED. SHANNA DRAIN EMPTIED 15 MLS, T TUBE EMPTIED 150 MLS BROWN DRAINAGE. CALL LIGHT IN REACH. IN ROOM.
--- NOTE | 2019-05-06 01:55 | NUR ---
CALL LIGHT ANSWERED. pt UP TO RESTROOM FOR LOOSE BM WITH RAISED COMMODE FOR COMFORT, BRACING ABD WITH FOLDED DRAW SHEET. pt RATES PAIN 5/10 IN RUQ, MID UPPER ABD WITH MOVEMENT, 2/10 WITH REST. PRN MEDICATION ADMINISTERED REQUESTED. DISCUSSED ACETAMINOPHEN MAX DOSAGES WITH pt AND , PLAN TO HOLD UNTIL AM. ASSESSMENT COMPLETE. T-TUBE EMPTIED 125 ML BROWN DRAINAGE. SCANT SS DRAINAGE IN SHANNA BULP. SMALL SHADOWING ON PROXIMAL RUQ DRESSING NOTED. BOWEL TONES ACTIVE X 4, ABD DISTENDED. CALL LIGHT IN REACH. SCDS ON.
--- NOTE | 2019-05-06 04:19 | NUR ---
CALL LIGHT ANSWERED. SBA TO RESTROOM FOR VOID AND UP AMBULATING IN HALLWAY. ABD GUARDED, BRACING WITH FOLDED DRAW SHEET. pt RATES PAIN 5/10 WITH AMBULATION. DENIES NEED FOR ADDITIONAL MEDICATIONS AT THIS TIME. POLE FRAMER MACHINE TODD WITH pt. SHANNA DRAIN DRAINING SCAN AMT SS FLUID, NO BILE NOTED. BILE DRAINING FROM T TUBE. DRESSINGS INTACT. NO NEW DRAINAGE NOTED. LINENS CHANGED pt DIAPHORETIC. TEMPERATURE ADJUSTED IN ROOM.
--- NOTE | 2019-05-06 04:47 | NUR ---
CALL LIGHT ANSWERED. pt C/O 08/16 ABD PAIN, RESTING IN BED "UNABLE TO SLEEP". PRN MEDICATION ADMINISTERED W SIPS CLEAR LIQUID. pt TOLERATING WELL. CALL LIGHT IN REACH. TV REMOTE PROVIDED. SCDS ON.
--- NOTE | 2019-05-06 05:08 | NUR ---
pt AMBULATING AROUND HALLWAY THIS SHIFT SBA. PAIN CONTROLLED WITH PRN OFIRMEV, TORADOL, AND PO DILAUDID. TOLERATING SIPS OF CLEAR LIQUIDS WITH PO MEDICATIONS. LOOSE BM THIS SHIFT. SCDS ON. VSS. DRESSINGS WITH SMALL SPOT SS DRIED DRAINAGE RUQ, UNCHANGED THIS SHIFT. SHANNA WITH SS DRAINAGE, NO BILE NOTED. T-TUBE WITH BROWN DRAINAGE. BOWEL TONES ACTIVE, ABD DISTENDED, TENDER W PALPATION RLQ, RUQ.
--- NOTE | 2019-05-06 05:54 | NUR ---
pt SLEEPING. SPO2 92% ON RA. AWAKENS TO VOICE. RATES PAIN 5/10 IN ABD. PRN ORFIRMEV ADMINSITERED. PRN ZOFRAN ADMINSITERED REQUESTED. IVF INFUSING WNL. pt REFUSING SCDS AT THIS TIME. WARM BLANKET PROVIDED. CALL LIGHT IN REACH.
--- NOTE | 2019-05-06 06:53 | NUR ---
PHONE CALL TO MD. TELEPHONE ORDER FOR DIET REPEATED BACK, CHANGED TO PO ATIVAN, ORDER REPEATED BACK. UPDATED ON pt STATUS.
--- NOTE | 2019-05-06 09:00 | NUR ---
0825: PT CALLED FOR ASSISTANCE AND STATED "I'M READY FOR SOME MEDS" CLARIFIED IF HE WANTED PAIN MEDS HE STATED "I DON'T KNOW. WHATEVER I CAN HAVE." ATTEMPTED TO WAKE UP HIS WHO WAS SLEEPING AT BEDSIDE. PT STATED "WHY DON'T WE WAIT UNTIL SHE WAKES UP, SHE KNOWS WHAT I NEED". THIS RN LEFT ROOM TO GATHER MEDICATIONS. 0840: ENTERED ROOM TO ADMINISTER SCHEDULED PEPCID, PRN TORADOL AND DILAUDID. PT NOW STANDING AT BEDSIDE. PT CRYING AND GRIMACING. RATES PAIN 8/10. MEDICATED AT THIS TIME. REQUESTED THAT ATIVAN BE ADMINISTERED. 0857: ATIVAN ADMINISTERED AT THIS TIME. PT DENIES NAUSEA. STATES "IT HURTS SO FUCKING BAD. SOMETHING IS WRONG, SOMETHING DOESN'T FEEL RIGHT." PROVIDING CALMING WORDS. CALL LIGHT WITHIN REACH.
--- NOTE | 2019-05-06 10:25 | NUR ---
PT AMB HALLWAY WITH , MAKING MULTIPLE LAPS. APPERS TO BE GLORY WELL.
--- NOTE | 2019-05-06 11:24 | NUR ---
PATIENT SITTING UP IN BED. IN ROOM. VITAL SIGNS AND I&O DONE. ICE PACKS AND WARM BLANKET PROVIDED. GATORADE ORDERED TO THE KITCHEN. CALL LIGHT WITHIN REACH. NO OTHER NEEDS AT THIS TIME
--- NOTE | 2019-05-06 12:57 | NUR ---
PT LYING IN BED WITH HEAD OF BED ELEVATED. VISITED MARYSOL WITH FRIEND MAYI. PT ATE A FEW BITES OF LUNCH, GLORY WELL SO FAR. DENIES NAUSEA. REPORTS 5/10 PAIN AND WOULD LIKE 1 TAB PRN DILAUDID BEFORE TAKING A NAP. MEDICATED AT THIS TIME. GIVEN WARM BLANKETS. LIGHTS OFF, AT BEDSIDE. CALL LIGHT WITHIN REACH.
--- NOTE | 2019-05-06 13:20 | PATH ---
[facility] [address] [facility] [address] [place], [place] [address] Signed SPECIMEN(S): A GALLBLADDER SPECIMEN SOURCE: A. GALLBLADDER CLINICAL HISTORY: Cholelithiasis. FINAL PATHOLOGIC DIAGNOSIS: Gallbladder, cholecystectomy: - Chronic cholecystitis. - Cholelithiasis. NAL:[facility]:C2NR MICROSCOPIC EXAMINATION: Histologic sections of all submitted blocks are examined by light microscopy. These findings, together with the gross examination, support the pathologic diagnosis. GROSS DESCRIPTION: The specimen, labeled "TM," and designated on the requisition "gallbladder," is received in formalin and consists of Specimen: Previously opened gallbladder. Dimensions: 6.5 x 4.8 x 1.5 cm. Serosa: Yellow-green and focally disrupted. Cystic Duct: Probe patent and inked. Calculi: Multiple yellow-green, smooth, angular stones, aggregate measurement 5.5 x 4.5 x 2.6 cm. Mucosa: [place] and granular with areas of erosion. Wall thickness: 0.3 cm. Lymph node: No pericystic lymph nodes are grossly identified. Additional: None. Trust And Estates Attorney sections are submitted in cassette (A1). FB (under the direct supervision of a pathologist) The Gross Description was prepared using a voice recognition system. The report was reviewed for accuracy; however, sound-alike word errors, addition and/or deletions may occur. If there is any question about this report, please contact Client Services. PERFORMING LABORATORY: The technical component was performed by avandeo, Richardson Echeverria, PATIENT NAME: MERISSA ALICEA BRITANY PATHOLOGY DATE OF : 82 REPORT #: [id number] PHYSICIAN: LEMUEL CORRIGAN PCP: KATHRYN LOVE PAC REPORT IS CONFIDENTIAL AND NOT TO BE RELEASED WITHOUT AUTHORIZATION [facility] [address] [place], [place] [address] [place] [address] (Firearms Expert: Nereida Lawson MD; CLIA# [id number]). Professional interpretation was [facility] [address] [address] (Firearms Expert: Henri Salvador MD; CLIA# [id number]). Diagnostician: Lola Davis MD Pathologist Electronically Signed 05/06/2019 Copies: ~ PATIENT NAME: MERISSA ALICEA PATHOLOGY DATE OF : 82 REPORT #: [id number] PHYSICIAN: LEMUEL CORRIGAN PCP: KATHRYN LOVE PAC REPORT IS CONFIDENTIAL AND NOT TO BE RELEASED WITHOUT AUTHORIZATION
--- NOTE | 2019-05-06 13:54 | NUR ---
PT SITTING UP IN BED WITH PILLOW ON ABDOMEN AND JOSETTE AT BS. PT SEEMS A LITTLE MORE CHEERFUL AND UPBEAT TODAY. SAID HE SLEPT FAIRLY WELL. HAD GOOD VISIT WITH PT, HE ACCEPTED A P.QUILT. PT DECLINED PRAYER AGAIN, EXTENDED A BLESSING. NOTICED PT WAS SOMEWHAT EMOTIONAL, GAVE ENCOURAGEMENT AND GOT PT TO LAUGH. WILL FOLLOW NEEDED
--- NOTE | 2019-05-06 14:46 | NUR ---
PT APPEARS TO BE SLEEPING SOUNDLY UPON ENTERING ROOM. LIGHTS OFF, CURTAIN CLOSED. EYES CLOSED, RESP EVEN AND UNLABORED. AT BEDSIDE.
--- NOTE | 2019-05-06 14:47 | NUR ---
VITAL SIGNS AND I&O HAVE NOT BEEN MADE YET BECAUSE THE IS ASLEEOP AND HIS WANTS HIM TO REST.
--- NOTE | 2019-05-06 15:53 | NUR ---
PT CALLED FOR PAIN MEDICATION. UPON ENTERING ROOM PT LYING IN BED, HANDS UP TO FACE, CRYING SAYING "UGH THIS HURTS! SOMETHING IS WRONG, SOMETHING DOESN'T FEEL RIGHT." REFERS TO PAIN IN RIGHT UPPER QUADRANT RIGHT AT UPPER INCISION DRESSING. PROVIDING WORDS OF REASSURANCE. PT MEDICATED WITH PRN DILAUDID, ATIVAN, AND SIMETHICONE. RATES PAIN 8/10. PT FEELS THAT THE PAIN IS AGRAVATED BY GAS MOVEMENT IN ABDOMEN. PT APPEARS VERY PAINFUL BUT WAS ABLE WITH SOME ASSISTANCE TO STAND AT EGDE OF BED. PT NOW STANDING UP BY WALL WITH HANDS UP ON WALL BRACING SELF. PT AND STATE THEY WILL TRY TO GO FOR A WALK SHORTLY.
--- NOTE | 2019-05-06 16:11 | NUR ---
PATIENT AMBULATING IN THE HALLWAY WITH HIS .
--- NOTE | 2019-05-06 16:45 | NUR ---
PT AMB HALLWAY WITH , APPEARS TO BE GLORY WELL.
--- NOTE | 2019-05-06 16:55 | NUR ---
PT SITTING UP IN BED VISITING WITH MOTHER. PT APPEARS TO BE IN MUCH HIGHER SPIRITS. CONVERSING EASILY, LAUGHING AND JOKING AROUND. RATES PAIN 5/10. MEDICATED WITH IV TYLENOL, TORADOL, AND ZOFRAN PER PT 'S REQUEST. SHE WOULD LIKE TO KEEP THESE MEDS GOING "AROUND THE CLOCK TO STAY AHEAD OF THE PAIN." SHANNA AND T-TUB DRAIN EMPTIED AT THIS TIME. T-TUBE PUTTING OUT A MODERATE AMOUNT OF GREENISH BROWN BILE FLUID. SHANNA PUTTING OUT SCANT AMOUNT OF LIGHT PINK/RED DRAINAGE. INCISIONAL DRESSINGS REMAIN UNCHANGED, NO NEW SHADOWING NOTED. PT REPORTS THAT HIS DISCOMFORT DECREASED SIGNIFICANTLY AFTER PASSING A LOT OF GAS. CURRENTLY NOT AT BEDSIDE. CALL LIGHT WITHIN REACH.
--- NOTE | 2019-05-06 17:15 | NUR ---
PATIENT SITTING UP IN BED. RN AND MOM IN ROOM. VITAL SIGNS DONE. I&O DONE BY RN. CALL LIGHT WITHIN REACH. NO OTHER NEEDS AT THIS TIME
--- NOTE | 2019-05-06 17:48 | NUR ---
Spoke with pt's as he has requested less people in his room. She denies needs, but states they could use commode at home as pt has difficulty getting up and down from a toilet. Gave her rental form from [employer] to obtain commode for short term use.
--- NOTE | 2019-05-06 18:33 | NUR ---
PT SITTING UP IN BED VISITING WITH HIS PARENTS. CONTINUES WITH UPBEAT SPIRITS. EXPRESSES THANKFULNESS FOR NURSING CARE THUS FAR. RATES PAIN 3/10 AT THIS TIME AND STATES THIS IS A TOLERABLE LEVEL. ATE A SMALL AMOUNT OF DINNER, DRINKING GATORADE, GLORY WELL DENIES NAUSEA. CALL LIGHT WITHIN REACH.
--- NOTE | 2019-05-06 18:51 | NUR ---
PT HAD PAINFUL MORNING. THIS RN, PATIENT, AND CAME UP WITH MEDICATION ADMINISTRATION PLAN TO KEEP MEDS GOING AROUND THE CLOCK TO PREVENT SEVERE PAIN. PT MUCH MORE COMFORTABLE AT THE END OF SHIFT. PT AMB HALLWAY MULTIPLE TIMES. PASSED A LARGE AMOUNT OF GAS WHICH HELPED SIGNIFICANTLY WITH PAIN. GLORY REGULAR DIET WELL, DRINKING LARGE AMOUNTS OF GATORADE. DRESSINGS REMAIN UNCHANGED. T-TUBE PUTTING OUT MODERATE AMOUNT OF BILE, MORELIA DRAIN PUTTING OUT SCANT AMOUNT OF PINK DRAINAGE. ABD DISTENTION STILL NOTED BUT APPEARS IMPROVED. BT HYPERACTIVE.
--- NOTE | 2019-05-06 19:15 | NUR ---
BEDSIDE REPORT RECEIVED FROM JUAN PAULINO. pt RESTING IN BED. RATES PAIN 2-3/10 IN ABD. VISITING WITH FAMILY IN ROOM. GETTING READY TO GET UP FOR WALK. IVF INFUSING WNL ORDERED. SHANNA DRAIN WITH SS FLUID, T-TUBE IN PLACE BILE DRAINING. DRESSINGS CDI WITH SMALL AMT DRIED SANGUINOUS SHADOWING. NO REQUESTS AT THIS TIME.
--- NOTE | 2019-05-06 20:00 | NUR ---
pt UP AMBULATING HALLWAY WITH SBA.
--- NOTE | 2019-05-06 21:19 | NUR ---
pt ASSESSMENT COMPLETE. pt RATES PAIN 4-5/10 IN ABDOMEN, STATES "IT FEELS LIKE IT HURTS MORE AT THE INCISIONS". PRN MEDICATION ADMINISTERED. IV ANTIBIOTIC INFUSING WNL ORDERED. BOWEL TONES ACTIVE, ABD SOFT, DISTENDED. POSTITIVE FLATUS. DEMONSTRATES USE OF IS WITH 1750 ML BEST EFFORT. LUNG SOUNDS CLEAR. T-TUBE EMPTIED 125 ML BROWN DRAINAGE. SHANNA DRAIN WITH SS FLUID, SCANT AMOUNT, TUBING STRIPPED. CALL LIGHT IN REACH. ICE WATER AND WARM BLANKETS PROVIDED.
--- NOTE | 2019-05-06 23:00 | NUR ---
PRN PAIN MEDICATION ADMINISTERED 4-08/16 REPORTED PAIN IN ABD. pt TEARFUL, EMOTIONAL. AT BEDSIDE. THERAPEUTIC COMMUNICATION, EDUCATION PROVIDED REGARDING CURRENT ILLNESS. PRN ANXIETY MEDICATION ADMINISTERED. SBA UP TO RESTROOM WITH . WARM BLANKETS AND ICE PACKS PROVIDED.
--- NOTE | 2019-05-06 23:46 | NUR ---
IV PUMP ALARMING. IVF NOW INFUSING WNL ORDERED. UP AMBULATING IN HALLWAY WITH , SBA.
--- NOTE | 2019-05-07 00:50 | NUR ---
pt ANXIOUS. PRODUCT SAFETY CONSULTANT AND THIS RN IN ROOM. REASSURANCE PROVIDED ON pt WELL BEING. pt RATES PAIN 3.5/10 IN ABDOMEN, "FEELS DIFFERENT, PRESSURE". EDUCATION PROVIDED. PRN TORADOL ADMINISTERED. pt ENCOURAGED TO REST. LYING IN BED, CALL LIGHT IN REACH. IN ROOM. IVF INFUSING WNL ORDERED.
--- NOTE | 2019-05-07 03:09 | NUR ---
Patinet is resting, Patient Ambulates self.
--- NOTE | 2019-05-07 05:04 | NUR ---
pt ANXIOUS, EMOTIONAL THIS SHIFT. PAIN WELL CONTROLLED WITH PRN PAIN MEDICATIONS IV TYLENOL, TORADOL AND PO DILAUDID X 1. UP AMBULATING IN HALLWAY. THERAPEUTIC COMMUNICATION, EDUCATION BY PRIMARY RN AND WAISTBAND SETTER REGARDING CURRENT ILLNESS. SHANNA DRAIN WITH SS FLUID. BILE DRAINING WNL FROM TTUBE. DRESSINGS CDI, SHADOWING UNCHANGED FROM START OF SHIFT. BOWEL TONES ACTIVE. TOLERATING REGULAR DIET. PRN PO ANXIETY MEDICATIONS. IVF INFUSING WNL.
--- NOTE | 2019-05-07 05:30 | NUR ---
pt BACK TO BED FROM RESTROOM, FLATUS PRESENT. pt RATES PAIN 5/10 AT THIS TIME. PRN OFIRMEV ADMINISTERED. T-TUBE EMPTIED 350 MLS BROWN/GREEN DRAINAGE. SHANNA EMPTIED 10 MLS SS FLUID. PRN ANXIETY MEDICATION ADMINISTERED, PRN SIMETHICONE. LAB IN ROOM AT THIS TIME. CALL LIGHT IN REACH. IN ROOM.
--- NOTE | 2019-05-07 06:56 | NUR ---
pt UP AMBULATING IN HALLWAY. C/O 11/16 ABD PAIN "BURNING AT INCISIONS". PRN PAIN MEDICATION ADMINISTERED. pt BACK IN BED, ICE PACK PROVIDED. AT BEDSIDE.
--- NOTE | 2019-05-07 08:27 | OR ---
[facility] [address], [place] [address] Signed DATE OF OPERATION: 05/05/2019 SURGEON: Halie Clinton MD PREOPERATIVE DIAGNOSES: 1. Recent history of laparoscopic cholecystectomy with intraoperative cholangiogram and laparoscopic common bile duct exploration and flexible choledochoscopy for severe acute cholecystitis with choledocholithiasis. 2. Postoperative persistent bile leak. POSTOPERATIVE DIAGNOSES: 1. Recent history of laparoscopic cholecystectomy with intraoperative cholangiogram and laparoscopic common bile duct exploration and flexible choledochoscopy for severe acute cholecystitis with choledocholithiasis. 2. Postoperative persistent bile leak. 3. 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 4. Small bile leak defect at common bile duct-cystic duct junction. PROCEDURES PERFORMED: 1. Laparoscopy with irrigation of subhepatic space and evaluation of brent hepatis. 2. Conversion to open operation with repair of leaking cystic duct and repair of common bile duct. 3. Common bile duct exploration with placement of 14-Marshallese T-Tube. PRODUCTION SERVICE MANAGER: Nurse. ANESTHESIA: General endotracheal; Beryl Caicedo CRNA, and preoperative lumbar retroperitoneal nerve block. INDICATIONS: This 39-year-old white man presented to the emergency room a few days ago with significant epigastric and right subcostal pain and was found on ultrasound to have a 2.8 cm gallstone in the infundibulum. He was discharged home and promptly called our office and direct admission was undertaken as he had ongoing acute cholecystitis. The patient does have prior history of inflammatory bowel disease (Crohn disease) for which he takes Humira on a routine basis. He has been doing so since 2011. He was directly admitted to the hospital, given intravenous fluids, antibiotics, and parenteral pain control. He had improvement of his symptoms. On Sunday (today is Sunday), he underwent Electronically Signed By: HALIE CLINTON MD 05/07/19 0827 PATIENT NAME: MERISSA ALICEA OPERATIVE REPORT DATE OF : 82 REPORT #: [id number] PHYSICIAN: HALIE CLINTON MD PCP: KATHRYN LOVE PAC REPORT IS CONFIDENTIAL AND NOT TO BE RELEASED WITHOUT AUTHORIZATION [facility] [address] [place], [place] [address] Signed laparoscopic cholecystectomy. He was found to have a markedly severely inflamed gallbladder far more than clinically suspected and the gallbladder was filled with stones, including two very large stones and several smaller stones. Initial cholangiogram showed a distal common duct filling defect consistent with stone. On that basis, he underwent a transcystic duct exploration including balloon dilation of the ampulla with irrigation and subsequent flexible choledochoscopy with extraction of the common bile duct stone. The cystic duct was more dilated than usual and on that basis was secured with 2 PDS Endoloops. A drain was placed in the subhepatic space. He had improvement of his symptoms, but did have a postoperative bile leak noted the following morning (Sunday). His liver enzymes were found to be normal plus bile leak began to increase in amount. The source of this was quite unclear and concern was maintained for possible retention of a common bile duct stone that had not been seen on completion cholangiogram. On that basis, today he underwent an MRCP. This showed no sign of dilated common duct, no sign of filling defect, it is certainly a significant bile leak in the region of the cystic duct area. I reviewed with the patient as well as his the various options of management to include ERCP with stenting, including diagnostic biliary evaluation versus continued simple drainage with the subhepatic space drain as he has no sign of sepsis and liver enzymes are normal versus laparoscopic evaluation to assess the cystic duct itself. My concern preoperatively is possibility of cystic duct necrosis causing increasing bile leak. He opted strongly for the latter as does his . The risks of bleeding, infection, bile duct injury, need for other indicated procedures including open procedures were reviewed in detail. They understand and wished to proceed. FINDINGS: On laparoscopy, there was no sign of generalized peritonitis or general bilious fluid throughout the abdomen by any means. The drain was in the subhepatic space as expected and was functioning well. Irrigation was then undertaken at subhepatic space and removal of the drain undertaken. Careful inspection of the area of the cystic duct where two Endoloops had been applied was identified. There appeared to be a bile leak that was rather persistent in the region of this area. It appeared that there may have well been some cystic duct necrosis as there was a somewhat linear defect with clear bile emanating from it. Considerable dissection was undertaken to better define this area. The size of the cystic duct was larger than I had expected and first concern was maintained that this may represent persistent infundibulum of the gallbladder itself as the area in question previously was relatively dilated necessitating Endoloops. Due to regional fibrosis, postoperative edema, and so forth, it was deemed unwise to assume this was a cystic duct. On that basis, conversion to open operation was undertaken. Electronically Signed By: HALIE CLINTON MD 05/07/19 0827 PATIENT NAME: MERISSA ALICEA OPERATIVE REPORT DATE OF : 82 REPORT #: [id number] PHYSICIAN: HALIE CLINTON MD PCP: KATHRYN LOVE [facility] REPORT IS CONFIDENTIAL AND NOT TO BE RELEASED WITHOUT AUTHORIZATION [address], [place] [address] Signed Open operation allowed for dissection of the cystic duct more fully and ultimately identification of the common duct. The dominant leak was at the cystic duct and I suspect ischemic necrosis of the cystic duct remnant was in large part responsible for the bile leak. There was, however, a small 2 mm defect in the region of cystic duct, common duct area that allowed for some bile staining in the brent hepatis otherwise, and this would be considered likely a defect in the common duct related to the previous procedure, though not absolutely certain. This area was repaired. Since intraoperative cholangiography was never fully successful initially, it was ultimately deemed most appropriate to do common bile duct exploration. This was done and there was no sign of retained stone, neoplasm, or other problem. A T-tube was placed as usual and a completion T-tube cholangiogram showed no filling defects or other problem. DESCRIPTION OF PROCEDURE: The patient was brought to the operating room, given a general endotracheal anesthetic. Preoperative antibiotic Ancef was given. Sequential compression device stockings used and heparin subcutaneously administered. Steri-Strips were removed and a drain was left in place. The abdomen was prepared with chlorhexidine solution and draped sterilely. An infraumbilical incision was . Fascial closure was quite melgar. Sutures were removed. A Richard cannula inserted and pneumoperitoneum achieved to a level of 14 mmHg of carbon dioxide gas. Intraabdominal inspection showed no sign of ascites or carcinomatosis. There was good seal between the omentum and the undersurface of the liver itself. Three additional trocars were placed in usual configuration in the previous trocar sites. The edge of the right lobe of the liver was elevated and bluntly and the drain was found to be well positioned in the subhepatic space. Clips were noted from prior surgery in the region of cystic arterial branches and careful dissection with blunt and minimal cautery and irrigation type dissection was undertaken ultimately identifying the Endoloops from prior closure. One of the Endoloops was simply nearly free-floating and it had previously been well approximated, which was suggestive of duct necrosis. cystic duct appeared to be intact, but with elevation of this area, there appeared to be a linear defect corresponding to the relatively large lumen of the cystic duct. Various approaches to dissection were undertaken to better define the cystic duct and to be absolutely certain it did not represent a common duct (short cystic duct type defect). After considerable dissection, it was clear that further dissection might well be hazardous and given the edema, his obesity, and so forth, the common duct could not clearly be identified laparoscopically and on that basis conversion to open operation was deemed appropriate. Right subcostal incision was made after removal of the trocars and securing the infraumbilical fascial incision. The rectus muscle was divided and the anterior and the Electronically Signed By: HALIE CLINTON MD 05/07/19 0827 PATIENT NAME: MERISSA ALICEA OPERATIVE REPORT DATE OF : 82 REPORT #: [id number] PHYSICIAN: HALIE CLINTON MD PCP: KATHRYN LOVE PAC REPORT IS CONFIDENTIAL AND NOT TO BE RELEASED WITHOUT AUTHORIZATION [facility] [address] [place] [id number] Signed posterior rectus sheath incised as was the peritoneum. A Bookwalter retractor was attached to the table and open evaluation undertaken. Irrigation was undertaken. The area of leakage was clearly that of a wide defect. Further dissection was undertaken identifying very thickened fat and peritoneum over the brent hepatis. The presumed cystic duct was dissected more fully and attempts were made for intraoperative cholangiogram, but there was significant spillage and the definition of the biliary tree could not be ascertained. An additional attempt was undertaken with another method of interrogating the cystic duct with a butterfly needle, but this too was unsuccessful. Dissection was begun more medially directly over what should have been the common duct area and with meticulous care, ultimately the dominant common duct could be identified. There appeared to be a small defect in the common duct directly opposite from the cystic duct insertion. Whether this represented a defect from dissection or previous exploration with stone basket removal and so forth is uncertain. In any case, it was leaking bile into the periportal area separate distinct from that of the presumed ischemic cystic duct stump. An attempt with a butterfly needle for cholangiogram with common duct was unsuccessful and ultimately further dissection of the common duct undertaken ascertaining quite clearly its anatomy in relation to the cystic duct. The cystic duct was triply clipped with large clips in area completely viable. An anterior choledochotomy was made on the common bile duct and egress of clear bile was noted. Interrogation of the proximal and distal common duct was undertaken with forceps showing no sign of retained stone or neoplasm. Irrigation was undertaken more fully. A 14-Marshallese T-Tube was cut to the appropriate configuration and secured into the common bile duct and the defect secured with interrupted 4-0 PDS suture. An on-table cholangiogram was then performed showing good biliary anatomy, no sign of filling defect or ongoing leak. Irrigation was undertaken more fully. The T-tube was brought out through a trocar site on the right side and a 7-mm flat Memo drain was placed in subhepatic space as a backup drain. The common duct defect had been repaired. A T-tube placed and cystic duct further dissected and secured with clips as noted. Plans were then made for closure. The posterior sheath and its attendant peritoneum were reapproximated with running #1 PDS suture. The rectus muscle was irrigated and the anterior rectus sheath reapproximated with running #1 PDS as well. Subcutaneous tissue was irrigated. The skin closed with running subcuticular 3-0 Vicryl. Similarly, the infraumbilical incision was closed. 20 mL of 0.25% Marcaine with epinephrine was Electronically Signed By: HALIE CLINTON MD 05/07/19 0827 PATIENT NAME: MERISSA ALICEA OPERATIVE REPORT DATE OF : 82 REPORT #: [id number] PHYSICIAN: HALIE CLINTON MD PCP: KATHRYN LOVE PAC REPORT IS CONFIDENTIAL AND NOT TO BE RELEASED WITHOUT AUTHORIZATION [facility] [address] [place], [place] [address] Signed injected locally. Steri-Strips were applied as were Mepilex, silver sponge dressings, and the large OpSite sheaths to secure the drains. The T-tube is secured to the drainage tubing to be kept in dependent position overnight and the Memo drain showed only bloody drainage, no bilious leakage. MD JOHN Bolden/TOÑO /[id number] cc: [facility] Copies: ~ Electronically Signed By: HALIE CLINTON MD 05/07/19 0827 PATIENT NAME: MERISSA ALICEA OPERATIVE REPORT DATE OF : 82 REPORT #: [id number] PHYSICIAN: HALIE CLINTON MD PCP: KATHRYN LOVE PAC REPORT IS CONFIDENTIAL AND NOT TO BE RELEASED WITHOUT AUTHORIZATION
--- NOTE | 2019-05-07 09:00 | NUR ---
DR CLINTON IN TO SEE PT, T-TUBE CLAMPED, WILL MONITOR SHANNA CLOSELY FOR POSSIBLE BILE. IV SL, AMBULATING LOOP AROUND NURSES STATION WITH , IN BETTER MOOD THIS AM.
--- NOTE | 2019-05-07 12:55 | NUR ---
PT STATES HE IS DOING MUCH BETTER TODAY, JUST WOKE FROM A [facility] [employer], REQUESTED DILAUDID BEFORE GOING FOR A WALK, DENIES NAUSEA, ORDERED LUNCH, SHANNA WITH SCANT AMOUNT RED SERROUS FLUID.
--- NOTE | 2019-05-07 13:14 | NUR ---
Pt not visited as he has requested only his Rn for the day in his room. Will talk with when she is in to see if they have any needs.
--- NOTE | 2019-05-07 14:16 | NUR ---
PT STANDING IN HALLWAY WITH , CONT. TO C/O PAIN RUQ, DENIES NAUSEA MYLICON GIVEN FOR "PRESSURE". APPEARS TEARFUL AND STRESSED, LORAZEPAM 2MG PO GIVEN AT THIS TIME, SHANNA REMAINS PATENT WITH SCANT AMOUNT RED SERROUS FLUID. DRSG INTACT, NO NEW SHADOWING, ACTIVE BOWEL SOUNDS, CONT. TO WALK IN HALLWAY.
--- NOTE | 2019-05-07 14:25 | NUR ---
VISITED WITH PT HE WAS AMBULATING WITH IN HALLWAY. HE SEEMED IN BETTER MOOD, SAID HE SLEPT FAIRLY WELL LAST NIGHT. JOKED ABOUT RUNNING A RACE. GAVE ENCOURAGEMENT, WILL FOLLOW NEEDED
--- NOTE | 2019-05-07 17:23 | NUR ---
PT WALKING IN HALLWAY, STATES ABD BLOATING BETTER SINCE HAVING BM, DENIES NAUSEA, RATES PAIN 3/10 AT THIS TIME. IN MUCH BETTER SPIRITS.
--- NOTE | 2019-05-07 19:20 | NUR ---
IN ROOM FOR REPORT, PT IS AWAKE IN BED. HE HAS A VISITOR IN THE ROOM AT THIS TIME. CALL LIGHT IS CLOSE AND PT DENIES NEEDS.
--- NOTE | 2019-05-07 20:18 | NUR ---
IN ROOM TO ASSESS PT AND ADMINISTER MEDICATIONS. PT REPORTS PAIN AT 5/10 AT THIS TIME. 4 MG DILAUDID ADMINISTERED. BT ARE ACTIVE AND PT HAD A BM TODAY. SMALL AMOUNT OF DRIED DRAINAGE NOTED ON HIS DRESSINGS AND SHANNA DRAIN HAS NOT PUT OUT ENOUGH TO MEASURE AT THIS TIME. PT DENIES NEEDS AT THIS TIME. HE HAS VISITORS IN THE ROOM. CALL LIGHT IS CLOSE.
--- NOTE | 2019-05-07 20:18 | NUR ---
VITALS AND I&OS DONE AND CHARTED. BEDSIDE TABLE AND CALL LIGHT IN REACH.
--- NOTE | 2019-05-07 21:30 | NUR ---
PT AMBULATING IN [place] WITH HIS .
--- NOTE | 2019-05-07 23:17 | NUR ---
IN ROOM TO ADMINISTER MEDICATIONS. PT WANTED ZOFRAN AND SIMETHICONE PROPHYLACTICALLY. PT REPORTS PAIN AT 4/10 WITH MOVEMENT. HE DENIES OTHER NEEDS AT THIS TIME. HE AND ARE HOPEFUL TO GO HOME TOMORROW. CALL LIGHT IS CLOSE.
--- NOTE | 2019-05-08 01:15 | NUR ---
WOKE PT TO ADMINISTER TORADOL PER PT REQUEST. HE DENIES FURTHER NEEDS AT THIS TIME. CALL LIGHT IS CLOSE. IV IS INFUSING FINE.
--- NOTE | 2019-05-08 03:00 | NUR ---
PT IS RESTING WITH EYES CLOSED, RR IS EVEN AND NONLABORED. CALL LIGHT IS CLOSE, IV IS INFUSING FINE.
--- NOTE | 2019-05-08 06:38 | NUR ---
VITALS AND I&OS DONE AND CHARTED. FRESH ICE AND GATORADE GIVEN PER PT REQUEST. BEDSIDE TABLE AND CALL LIGHT IN REACH.
--- NOTE | 2019-05-08 06:38 | NUR ---
ADMINISTERED 4 MG DILAUDID FOR 4/10 PAIN AND SIMETHICONE. PT DENIES FURTHER NEEDS AT THIS TIME. 3MLS OF SEROSANGUINOUS FLUID DRAINED FROM SHANNA. CALL LIGHT IS CLOSE.
--- NOTE | 2019-05-08 06:40 | NUR ---
PT'S PAIN WAS WELL CONTROLLED THROUGH THE NIGHT ALTERNATING BETWEEN TYLENOL, TORADOL, PO DILAUDID AND SIMETHICONE. SHANNA DRAIN ONLY DRAINED 3 MLS THROUGH THE NIGHT OF SEROSANGUINOUS FLUID. PT DRANK LIQUIDS THROUGH THE NIGHT WITHOUT NAUSEA HAVING ZOFRAN ONCE "JUST IN CASE". WAS QUESTIONING IF HE COULD GO HOME TODAY.
--- NOTE | 2019-05-08 07:40 | NUR ---
PT IS AWAKE, A LITTLE TEARFUL, DENIES NEEDING ATIVAN, SUPPORTIVE AND AT BEDSIDE, BREAKFAST ORDERED, STATES HE CONT. TO FEEL OVER WHELMED BUT DOES FEEL HE IS GETTING BETTER, IV DC'D LEAKING, TAKING PO FLUIDS WELL, WOULD LIKE TO LEAVE OUT, WILL SPEAK TO DR CLINTON. GOOD BOWEL SOUNDS, PASSING FLATUS, ENC. PT TO CONT. AMBULATION AND MAYBE ANOTHER SHOWER TODAY.
--- NOTE | 2019-05-08 11:10 | NUR ---
DR CLINTON IN TO SEE PT, REMOVED DRESSINGS, T-TUBE DRAIN REMAINS CLAMPED, SHANNA SECURE WITH SCANT AMOUNT RED SERROUS FLUID, DOES VERY WELL EMPTING DRAIN. BOTH VERBALIZE UNDERSTANDING OF S/SX TO REPORT, KEEPING DRAIN TUBES TAPED SECURELY. BOTH AGREE THEY ARE READY TO GO HOME.
[2019-05-08] MEDS ORDERED: NICORETTE4 M2 BUCCAL (11:46)
[2019-05-08] MEDS ORDERED: METRONIDAZOLE250 MG PO (11:46)
[2019-05-08] MEDS ORDERED: TYLENOL EXTRA500 MG PO (11:47)
[2019-05-08] MEDS ORDERED: SIMETHICONE80 MG PO (11:47)
[2019-05-08] MEDS ORDERED: HYDROMORPHONE HC4 MG PO (11:47)
[2019-05-08] MEDS ORDERED: FAMOTIDINE20 MG PO (11:48)
[2019-05-08] MEDS ORDERED: ONDANSETRON ODT8 MG PO (11:49)
--- NOTE | 2019-05-08 12:50 | NUR ---
PHARMACY WAS IN AND DISCUSSED MEDICATION, I REVIEWED AGAIN MEDICATIONS, FOLLOWUP APPOINTMENT, DRSG SUPPLIES PROVIDED. HAS PERSCRIPTION FOR DILAUDID. DENIES ANY QUESTIONS OR CONCERNS AT THIS TIME. DRESSED AND READY TO GO HOME. DC TO HOME ATTHIS TIME.
--- NOTE | 2019-05-08 13:00 | NUR ---
Spoke with pt and as notified by Dr. Hoover pt will dc today. Asked if they have any needs and both deny. Pt. denies need for DME. asks if I will notify Neeta, patient educator, they would like to forego any teaching. Plan to dc to home with . Neeta notified.
--- NOTE | 2019-05-08 14:11 | NUR ---
PT DC'D-ON WAS OUT IN . HE SHOOK MY HAND, THANKED FOR FOR CHECKING ON HIM. EXTENDED A BLESSING-HAPPY FOR HIM THIS HAS BEEN A VERY DIFFICULT TIME FOR HIM
== END 2019-05-08 12:50 | disposition home or self-care (01) | DRG 409 ==
LOC: MS → EDSTATUS 13:00 → MS 16:06
PROVIDERS: ADMIT Surgery
PROC: 0DNU4ZZ Release Omentum, Percutaneous Endoscopic Approach (ICD-10-PCS; 2019-05-02)
PROC: BF101ZZ Fluoroscopy of Bile Ducts using Low Osmolar Contrast (ICD-10-PCS; 2019-05-02)
PROC: 0FC94ZZ Extirpation of Matter from Common Bile Duct, Percutaneous Endoscopic Approach (ICD-10-PCS; 2019-05-02)
PROC: 0FT44ZZ Resection of Gallbladder, Percutaneous Endoscopic Approach (ICD-10-PCS; principal; 2019-05-02 13:00)
PROC: 0FJB4ZZ Inspection of Hepatobiliary Duct, Percutaneous Endoscopic Approach (ICD-10-PCS; 2019-05-05)
PROC: 3E0T3BZ Introduction of Anesthetic Agent into Peripheral Nerves and Plexi, Percutaneous Approach (ICD-10-PCS; 2019-05-05)
PROC: 0FQ90ZZ Repair Common Bile Duct, Open Approach (ICD-10-PCS; 2019-05-05 13:30)
DX: K80.62 Calculus of gallbladder and bile duct with acute cholecystitis without obstruction (principal); K50.90 Crohn's disease, unspecified, without complications; K91.89 Other postprocedural complications and disorders of digestive system; G89.18 Other acute postprocedural pain; E66.9 Obesity, unspecified; F41.9 Anxiety disorder, unspecified; F17.220 Nicotine dependence, chewing tobacco, uncomplicated; Z79.899 Other long term (current) drug therapy; Z68.32 Body mass index [BMI] 32.0-32.9, adult
CPT/HCPCS: 00790; 36415; 74181; 74300; 76942; 80053; 82150; 82247; 82465; 83615; 83690; 84100; 84478; 84550; 85025; 94760; 94762; 99406; C1726; C1769; C1894; J0131; J0330; J0690; J1100; J1170; J1644; J1885; J2060; J2250; J2270; J2300; J2405; J2704; J2795; J3010; J3475; J7060; J7121; Q9967